=== PATIENT | female | born 1940 | race Caucasian/White ===

== ENCOUNTER 2019-08-20 15:49 | Inpatient (IN) | payer MEDICARE ==
--- NOTE | 2019-08-20 16:55 | XR ---
EXAMINATION TYPE: XR chest 2V DATE OF EXAM: 08/20/2019 COMPARISON: 01/28/2012 TECHNIQUE: PA and lateral views submitted. HISTORY: Chest pain FINDINGS: Heart is globally enlarged. Large hiatal hernia. Postsurgical change right shoulder and diffuse osteo penia. No pneumothorax or overt failure. No consolidation. Mild degenerative change of the spine. IMPRESSION: 1. Global cardiomegaly correlate for cardiomyopathy versus pericardial effusion. 2. Large hiatal hernia.
[2019-08-20 16:56] LABS: Basophils # (A) 0.1 k/uL (0-0.2); Basophils % (A) 1 %; Eosinophils # (A) 0.7 k/uL (0-0.7); Eosinophils % (A) 7 %; HCT 39.9 % (34.0-46.0); HGB 12.5 gm/dL (11.4-16.0); Lymphocytes # (A) 2.3 k/uL (1.0-4.8); Lymphocytes % (A) 22 %; MCH 30.9 pg (25.0-35.0); MCHC 31.4 g/dL (31.0-37.0); MCV 98.5 fL (80.0-100.0); Mean Platelet Volume 9.3; Monocytes # (A) 0.7 k/uL (0-1.0); Monocytes % (A) 7 %; Neutrophils # (A) 6.4 k/uL (1.3-7.7); Neutrophils % (A) 62 %; Platelet Count 254 k/uL (150-450); RBC 4.05 m/uL (3.80-5.40); RDW 13.3 % (11.5-15.5); WBC 10.4 k/uL (3.8-10.6)
--- NOTE | 2019-08-20 16:59 | ED ---
General Adult HPI - General Chief complaint: Recheck/Abnormal Lab/Rx Stated complaint: fluid around heart/per dr Betancourt Time Seen by Provider: 08/20/19 15:50 Source: patient, RN notes reviewed, old records reviewed Mode of arrival: ambulatory Limitations: no limitations - History of Present Illness Initial comments: This is an 78-year-old female who presents emergency Department complaining that she's been a little short of breath lately and she went to see her primary medical care doctor primary medical care doctor stated that she had a pericardial effusion. Patient was sent to the emergency department immediately. Patient denies any chest pain. Patient denies any fever chills. Patient denies any edema to the leg. - Related Data Home Medications Medication Instructions Recorded Confirmed Levothyroxine Sodium [Synthroid] 62.5 mg PO DAILY@0600 08/20/19 08/20/19 Multivitamins, Thera [Multivitamin 1 tab PO W/LUNCH 08/20/19 08/20/19 (formulary)] Vitamin D3 (Unknown Strength) 1 tab PO W/LUNCH 08/20/19 08/20/19 amLODIPine [Norvasc] 5 mg PO DAILY@0700 08/20/19 08/20/19 Allergies Allergy/AdvReac Type Severity Reaction Status Date / Time No Known Allergies Allergy Verified 08/20/19 17:02 Review of Systems ROS Statement: Those systems with pertinent positive or pertinent negative responses have been documented in the HPI. ROS Other: All systems not noted in ROS Statement are negative. Past Medical History Past Medical History: Hypertension, Thyroid Disorder History of Any Multi-Drug Resistant Organisms: None Reported Past Surgical History: Unable to Obtain Past Psychological History: No Psychological Hx Reported Smoking Status: Former smoker Past Alcohol Use History: None Reported Past Drug Use History: None Reported General Exam - General Exam Comments Initial Comments: GENERAL: Patient is well-developed and well-nourished. Patient is nontoxic and well- hydrated and is in no acute distress. ENT: Neck is soft and supple. No significant lymphadenopathy is noted. Oropharynx is clear. Moist mucous membranes. Neck has full range of motion without eliciting any pain. EYES: The sclera were anicteric and conjunctiva were pink and moist. Extraocular movements were intact and pupils were equal round and reactive to light. Eyelids were unremarkable. PULMONARY: Unlabored respirations. Good breath sounds bilaterally. No audible rales rhonchi or wheezing was noted. CARDIOVASCULAR: There is a regular rate and rhythm without any murmurs gallops or rubs. ABDOMEN: Soft and nontender with normal bowel sounds. No palpable organomegaly was noted. There is no palpable pulsatile mass. SKIN: Skin is clear with no lesions or rashes and otherwise unremarkable. NEUROLOGIC: Patient is alert and oriented x3. Cranial nerves II through XII are grossly intact. Motor and sensory are also intact. Normal speech, volume and content. Symmetrical smile. MUSCULOSKELETAL: Normal extremities with adequate strength and full range of motion. No lower extremity swelling or edema. No calf tenderness. LYMPHATICS: No significant lymphadenopathy is noted PSYCHIATRIC: Normal psychiatric evaluation. Limitations: no limitations Course Vital Signs 08/20/19 08/20/19 15:53 17:38 Temperature 97.8 F Pulse Rate 97 86 Respiratory 18 16 Rate Blood Pressure 201/84 173/83 O2 Sat by Pulse 98 97 Oximetry Medical Decision Making - Medical Decision Making EKG shows sinus rhythm with occasional PVC at 89 bpm [place] interval 232 QRS is 88 QT interval 360 QTC is 438. Patient's EKG shows no ST segment elevation or depression. Chest x-ray shows global cardiomegaly consistent with pericardial effusion I spoke with Dr. Betancourt he wanted me to admit the patient admitted the patient I wrote admitting orders I consult cardiology as well as cardiothoracic surgery. - Lab Data Result diagrams: 08/20/19 16:28 08/20/19 16:28 Lab Results 08/20/19 08/20/19 08/20/19 Range/Units 16:28 16:28 16:28 WBC 10.4 (3.8-10.6) k/uL RBC 4.05 (3.80-5.40) m/uL Hgb 12.5 (11.4-16.0) gm/dL Hct 39.9 (34.0-46.0) % MCV 98.5 (80.0-100.0) fL MCH 30.9 (25.0-35.0) pg MCHC 31.4 (31.0-37.0) g/dL RDW 13.3 (11.5-15.5) % Plt Count 254 (150-450) k/uL Neutrophils % 62 % Lymphocytes % 22 % Monocytes % 7 % Eosinophils % 7 % Basophils % 1 % Neutrophils # 6.4 (1.3-7.7) k/uL Lymphocytes # 2.3 (1.0-4.8) k/uL Monocytes # 0.7 (0-1.0) k/uL Eosinophils # 0.7 (0-0.7) k/uL Basophils # 0.1 (0-0.2) k/uL PT 10.2 (9.0-12.0) sec INR 1.0 (<1.2) APTT 23.8 (22.0-30.0) sec Sodium 139 (137-145) mmol/L Potassium 3.9 (3.5-5.1) mmol/L Chloride 105 (98-107) mmol/L Carbon Dioxide 27 (22-30) mmol/L Anion Gap 7 mmol/L BUN 24 H (7-17) mg/dL Creatinine 1.30 H (0.52-1.04) mg/dL Est GFR (CKD-EPI)AfAm 45 (>60 ml/min/1.73 sqM) Est GFR (CKD-EPI)NonAf 39 (>60 ml/min/1.73 sqM) Glucose 107 H (74-99) mg/dL Calcium 10.4 H (8.4-10.2) mg/dL Magnesium 2.0 (1.6-2.3) mg/dL Total Bilirubin 0.2 (0.2-1.3) mg/dL AST 26 (14-36) U/L ALT 17 (4-34) U/L Alkaline Phosphatase 92 (38-126) U/L Troponin I (0.000-0.034) ng/mL Total Protein 6.3 (6.3-8.2) g/dL Albumin 3.5 (3.5-5.0) g/dL 08/20/19 Range/Units 16:28 WBC (3.8-10.6) k/uL RBC (3.80-5.40) m/uL Hgb (11.4-16.0) gm/dL Hct (34.0-46.0) % MCV (80.0-100.0) fL MCH (25.0-35.0) pg MCHC (31.0-37.0) g/dL RDW (11.5-15.5) % Plt Count (150-450) k/uL Neutrophils % % Lymphocytes % % Monocytes % % Eosinophils % % Basophils % % Neutrophils # (1.3-7.7) k/uL Lymphocytes # (1.0-4.8) k/uL Monocytes # (0-1.0) k/uL Eosinophils # (0-0.7) k/uL Basophils # (0-0.2) k/uL PT (9.0-12.0) sec INR (<1.2) APTT (22.0-30.0) sec Sodium (137-145) mmol/L Potassium (3.5-5.1) mmol/L Chloride (98-107) mmol/L Carbon Dioxide (22-30) mmol/L Anion Gap mmol/L BUN (7-17) mg/dL Creatinine (0.52-1.04) mg/dL Est GFR (CKD-EPI)AfAm (>60 ml/min/1.73 sqM) Est GFR (CKD-EPI)NonAf (>60 ml/min/1.73 sqM) Glucose (74-99) mg/dL Calcium (8.4-10.2) mg/dL Magnesium (1.6-2.3) mg/dL Total Bilirubin (0.2-1.3) mg/dL AST (14-36) U/L ALT (4-34) U/L Alkaline Phosphatase (38-126) U/L Troponin I <0.012 (0.000-0.034) ng/mL Total Protein (6.3-8.2) g/dL Albumin (3.5-5.0) g/dL Disposition Clinical Impression: Pericardial effusion Disposition: ADMITTED IP TO THIS HOSP Referrals: Bennett Betancourt MD [Primary Care Provider] - 1-2 days Time of Disposition: 18:16
[2019-08-20 17:05] LABS: Partial Thromboplastin Time 23.8 sec (22.0-30.0); Prothrombin Time 10.2 sec (9.0-12.0)
[2019-08-20 17:07] LABS: Albumin 3.5 g/dL (3.5-5.0); Calcium 10.4 mg/dL (8.4-10.2); Potassium 3.9 mmol/L (3.5-5.1); Total Bilirubin 0.2 mg/dL (0.2-1.3); Total Protein 6.3 g/dL (6.3-8.2)
[2019-08-20] MEDS ORDERED: hydrALAZINE HCL 25 MG TAB PO PRN (19:39)
--- NOTE | 2019-08-20 23:09 | P.HPIM ---
History of Present Illness H&P Date: 08/20/19 Chief Complaint: Pericardial effusion, worsening shortness of breath, tiredness, hypertensio 78-year-old female who moved from [facility] this past year I started seen almost a year ago who is known to have history of hypertension hyperlipidemia hypothyroidism with lipoma and a growth in the right upper extremity. Patient was seen in the office 3 weeks ago for worsening shortness of breath have mild abnormal EKG and louder murmur ended up going for an e chocardiogram which showed large pericardial effusion. Patient had no temporal not so far was called by cardiology who is doing then to patient for the echo and advised to have patient hospitalized for possible cardiac window. Patient is symptomatic currently having significant shortness of breath PND orthopnea mild hypertension severe tiredness fatigue abnormal balancing gait with generalized weakness become a lot worse lately. Review of Systems CONSTITUTIONAL: Well-developed no acute respiratory distress. Positive EYES: No icterus sclerae, no conjunctivitis. EARS, NOSE, MOUTH, THROAT, and FACE: No sore throat, lymphadenopathy, carotid bruits or deformity. RESPIRATORY: Shortness of breath with minimum exertion. CARDIOVASCULAR: Positive PND orthopnea palpitation with mild chest pain and shortness of breath. GASTROINTESTINAL: No Abd pain, Nausea or vomiting, no Diarrhea or constipation, No GI Bleed, no distention or masses. GENITOURINARY: Negative for Hematuria or UTI, no kidney stones. INTEGUMENT/BREAST: Large lipoma on the growth on the right upper extremity. HEMATOLOGIC/LYMPHATIC: Negative for bleed or purpura. MUSCULOSKELTAL: Negative for Myalgia or arthralgia. NEURLOGICAL: No LOC, Sz or syncope, blurred vision dizziness or abnormality.. Positive normal balance and gait with slight decrease in memory. BEHAVIORAL/PSYCH: Negative. ENDOCRINE: Negative. Social history: Patient quit smoking years ago smoked for about 10 years only no eye code abuse no drug use she is single and lives alone. Family history: Her father dying at age 95 from old age, mother dying her AV from recurrent infarction, patient had 1 sister who passed recently from complication of hip fracture. 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 History of Any Multi-Drug Resistant Organisms: None Reported Past Surgical History: Unable to Obtain Additional Past Surgical History / Comment(s): right ear surgery for Menieres disease 1985 Past Anesthesia/Blood Transfusion Reactions: No Reported Reaction Past Psychological History: No Psychological Hx Reported Smoking Status: Former smoker Past Alcohol Use History: None Reported Past Drug Use History: None Reported - Past Family History Mother Family Medical History: Myocardial Infarction ([place]) Father Family Medical History: Cancer Medications and Allergies Home Medications Medication Instructions Recorded Confirmed Type Levothyroxine Sodium [Synthroid] 62.5 mg PO DAILY@0600 08/20/19 08/20/19 History Multivitamins, Thera [Multivitamin 1 tab PO W/LUNCH 08/20/19 08/20/19 History (formulary)] Vitamin D3 (Unknown Strength) 1 tab PO W/LUNCH 08/20/19 08/20/19 History amLODIPine [Norvasc] 5 mg PO DAILY@0708/20/19 08/20/19 History Allergies Allergy/AdvReac Type Severity Reaction Status Date / Time No Known Allergies Allergy Verified 08/20/19 17:02 Physical Exam Vitals: Vital Signs Temp Pulse Pulse Resp BP BP Pulse Ox 08/20/19 19:07 97.8 F 88 18 197/86 98 08/20/19 17:38 86 16 173/83 97 08/20/19 15:53 97.8 F 97 18 201/84 98 Intake and Output 08/20/19 08/20/19 08/20/19 06:59 14:59 22:59 Other: Weight 53.977 kg General Appearance: Alert, cooperative, no distress, appears stated age. Neck HEENT: Supple, no lymphadenopathy, no thyroid enlargement, no carotid bruits. Lungs: Decreased breath some bilateral rhonchi no crackles. Chest Wall: Decrease expansion with deep inspiration no tenderness and no deformity was found on exam, no costochondral pain or discomfort. Heart: Regular rhythm and rate S1-S2 positive mild tachycardia positive S3 2/6 ejection systolic murmur Back: Symmetric, no curvature, ROM normal, no CVA tenderness. Abdomen: Soft, non-tender, bowel sounds active all four quadrants, no masses, no organomegaly. Extremities: Trace edema decreased pulse bilaterally started lipoma on the right upper extremity with mild bruises from recent injury. Pulses: 2+ and symmetric. Skin: Skin color, texture, tugor normal, no rashes or lesions. Neurologic: Alert oriented x3 cranial nerves II through XII intact, positive generalized weakness was generalized abnormal balance and gait. Slight memory loss. Results CBC & Chem 7: 08/20/19 16:28 08/20/19 16:28 Labs: Abnormal Lab Results - Last 24 Hours (Table) 08/20/19 Range/Units 16:28 BUN 24 H (7-17) mg/dL Creatinine 1.30 H (0.52-1.04) mg/dL Glucose 107 H (74-99) mg/dL Calcium 10.4 H (8.4-10.2) mg/dL Thrombosis Risk Factor Assmnt - DVT/VTE Prophylaxis DVT/VTE Prophylaxis: Pharmacologic Prophylaxis ordered, Mechanical Prophylaxis ordered Assessment and Plan Assessment: 1 large pericardial effusion: Not acutely etiology at this point, patient will be hospitalized, repeat echocardiogram will consult cardiology IV diuretics will be getting patient will see cardiothoracic surgery for possible pericardial window. In the meanwhile watch patient hemodynamic status for any sign of tamponade. 2 significant shortness of breath and dyspnea: Most likely from pericardial eff usion and mild heart failure. 3 hypertension: Continue patient on amlodipine 5 mg a day blood pressure has been elevated we'll add hydralazine 25 mg every 6 hours for systolic above 160. 4 hypothyroidism: Continue patient on levothyroxine total of 66 g daily. 5 severe GERD: Patient be on Pepcid 20 mg daily. 6 acute kidney injury: Creatinine is up to 1.30 with bun 24 with GFR decreased to 39 continue to watch symptoms repeat BUN/creatinine 24 hours. 7 hypercalcemia: With calcium of 10.4 will repeat parathyroid hormone level and keep watching for any sign of malignancy causing hypercalcemia in the pericardial effusion. 8 large happen hernia: Patient can benefit from PPI watch for any sign of bleed. 9 mild arrhythmia: Patient is having PVCs can benefit from small dose of beta mamta. 10 possible coronary artery disease: Patient described no previous history of [place] that she had Q waves on the inferior area with possible area further testing including stress test or heart cath can be beneficial. 11 hyperglycemia: Has been on diet control A1c was mildly elevated patient to continue current management. 12 severe spinal stenosis mostly lumbar on chronic in origin on conservative management and physical therapy. 13 DVT prophylaxis: Continue patient on heparin subcutaneous. 14 GI prophylaxis: Continue patient on pantoprazole. CODE STATUS: Full code. Admit patient to inpatient service for more than 2 night stay.
[2019-08-21] MEDS ORDERED: amLODIPine 5 MG TAB PO STA (00:24)
[2019-08-21] MEDS: amLODIPine 5 MG TAB PO SCH (06:08)
[2019-08-21] MEDS: LEVOTHYROXINE 125 MCG TAB PO SCH (06:08)
[2019-08-21] MEDS: PANTOPRAZOLE 40 MG TABLET PO SCH (06:09)
--- NOTE | 2019-08-21 07:54 | P.CRDCN ---
History of Present Illness Consult date: 08/21/19 Reason for Consult (text): Pleural effusion History of present illness: History of present illness: This is an 78-year-old female patient not previously established with cardiology with past medical history of hypertension, Mnire's, hypothyroidism. She moved from the [facility] to [place] one year ago and follows with Dr. Betancourt. 3 weeks ago she developed increasing shortness of breath and was noted to have increased murmur when she was seen by Dr. Betancourt. Patient underwent echocardiogram that reported as large pericardial effusion and patient was contacted by Dr. Betancourt to come into the hospital for further evaluation and treatment. She denies any recent medication changes. Patient's breathing status is currently stable and heart rate is controlled. Patient also complains of some shortness of breath with activity and generalized weakness. She states she has lost approximate 5 pounds over the past week or so and has had significant weight loss over the past year since she moved to [place]. This is unintentional weight loss despite good appetite. The patient also relates that she recently had a carotid ultrasound done in the office with Dr. Betancourt and does not know results. Patient was a smoker briefly and quit when she was 28 years old. No alcohol use. Initial blood work was unremarkable except for BUN of 24 and creatinine 1.3. Troponin negative. EKG is sinus rhythm with occasional PVCs. Chest x-ray revealed global cardiomegaly with possible cardiomyopathy or pericardial effusion. Large hiatal hernia. Review Of Systems: Constitutional: No fever, no chills. Reports generalized weakness, reports fatigue. EENT: No headache. No blurred vision or double vision, no loss of vision. No loss of Hearing, no dizziness. No nasal drainage or congestion. No epistaxis. No sore throat. Lungs: No shortness of breath, cough, no sputum production. No wheezing. Cardiovascular: No chest pain, no lower extremity edema. No palpitations. Reports paroxysmal nocturnal dyspnea. Reports orthopnea. No lightheadedness or dizziness. No syncopal episodes. Abdominal: No abdominal pain. No nausea, vomiting. No diarrhea. No constipation. No bloody or tarry stools. No loss of appetite. Genitourinary: No dysuria, increased frequency, urgency. No urinary retention. Musculoskeletal: No myalgias. No muscle weakness, no gait dysfunction, no frequent falls. No back pain. No neck pain. Integumentary: No wounds, no lesions. No rash or pruritus. No unusual bruising. Neurologic: No aphasia. No facial droop. No change in mentation. No head injury. No headache. No paralysis. No paresthesia. Psychiatric: No depression. No anxiety. No mood swings. Endocrine: No abnormal blood sugars. No weight change. No excessive sweating or thirst. No weight change. Physical examination: Gen: This is an 86-year-old female. She is resting in bed any breakfast and appears to be in no acute distress. VS: Patient has been afebrile, heart rate 74, blood pressure 162/73, pulse ox 97% on room air. HEENT: Head is atraumatic, normocephalic. Pupils equal, round. Sclerae is anicteric. NECK: Supple. No JVD. No lymphadenopathy. No thyromegaly. LUNGS: Few crackles to the left base otherwise clear. No wheezes. No intercostal retractions. HEART: Regular rate and rhythm. 2/6 systolic murmur. ABDOMEN: Soft. Bowel sounds are present. No masses. No tenderness. EXTREMITIES: No pedal edema. No calf tenderness. NEUROLOGICAL: Patient is awake, alert and oriented x3. Cranial nerves 2 through 12 are grossly intact. Assessment: Pericardial effusion Hypertension Hypothyroidism Mnire's Plan: Consult with cardiothoracic surgery Continue amlodipine 5 mg daily Obtain 2-D echocardiogram and Doppler study to assess cardiac structure and function, evaluate pericardial effusion Obtain TSH and free T4 Further recommendations to follow based upon clinical course Thank you kindly for this consultation Nurse practitioner note has been reviewed, I agree with documented findings and plan of care. Patient was seen and examined. 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 History of Any Multi-Drug Resistant Organisms: None Reported Past Surgical History: Unable to Obtain Additional Past Surgical History / Comment(s): right ear surgery for Menieres disease 1984 Past Anesthesia/Blood Transfusion Reactions: No Reported Reaction Past Psychological History: No Psychological Hx Reported Smoking Status: Former smoker Past Alcohol Use History: None Reported Past Drug Use History: None Reported - Past Family History Mother Family Medical History: Myocardial Infarction ([place]) Father Family Medical History: Cancer Medications and Allergies Home Medications Medication Instructions Recorded Confirmed Type Levothyroxine Sodium [Synthroid] 62.5 mg PO DAILY@0608/20/19 08/20/19 History Multivitamins, Thera [Multivitamin 1 tab PO W/LUNCH 08/20/19 08/20/19 History (formulary)] Vitamin D3 (Unknown Strength) 1 tab PO W/LUNCH 08/20/19 08/20/19 History amLODIPine [Norvasc] 5 mg PO DAILY@69908/20/19 08/20/19 History Allergies Allergy/AdvReac Type Severity Reaction Status Date / Time No Known Allergies Allergy Verified 08/20/19 17:02 Physical Exam Vitals: Vital Signs Temp Pulse Pulse Resp BP BP Pulse Ox 08/21/19 06:06 162/73 08/21/19 03:35 97.4 F L 74 18 161/78 97 08/21/19 02:54 163/74 08/20/19 23:50 97.6 F 66 18 183/78 97 08/20/19 19:30 97.8 F 83 18 171/81 97 08/20/19 19:07 97.8 F 88 18 197/86 98 08/20/19 17:38 86 16 173/83 97 08/20/19 15:53 97.8 F 97 18 201/84 98 Intake and Output 08/20/19 08/21/19 08/21/19 22:59 06:59 14:59 Output Total 500 Balance -500 Output: Urine 500 Other: Voiding Method Toilet Toilet # Voids 1 Weight 53.977 kg 52.5 kg Results 08/20/19 16:28 08/21/19 08:51 Cardiac Enzymes 08/20/19 08/20/19 Range/Units 16:28 16:28 AST 26 (14-36) U/L Troponin I <0.012 (0.000-0.034) ng/mL Coagulation 08/20/19 Range/Units 16:28 PT 10.2 (9.0-12.0) sec APTT 23.8 (22.0-30.0) sec CBC 08/20/19 Range/Units 16:28 WBC 10.4 (3.8-10.6) k/uL RBC 4.05 (3.80-5.40) m/uL Hgb 12.5 (11.4-16.0) gm/dL Hct 39.9 (34.0-46.0) % Plt Count 254 (150-450) k/uL Comprehensive Metabolic Panel 08/20/19 Range/Units 16:28 Sodium 139 (137-145) mmol/L Potassium 3.9 (3.5-5.1) mmol/L Chloride 105 (98-107) mmol/L Carbon Dioxide 27 (22-30) mmol/L BUN 24 H (7-17) mg/dL Creatinine 1.30 H (0.52-1.04) mg/dL Glucose 107 H (74-99) mg/dL Calcium 10.4 H (8.4-10.2) mg/dL AST 26 (14-36) U/L ALT 17 (4-34) U/L Alkaline Phosphatase 92 (38-126) U/L Total Protein 6.3 (6.3-8.2) g/dL Albumin 3.5 (3.5-5.0) g/dL Current Medications Generic Name Dose Route Start Last Admin Trade Name Leonq PRN Reason Stop Dose Admin Amlodipine Besylate 5 mg 08/21/19 07:00 08/21/19 06:08 Norvasc PO 5 mg DAILY@0700 [facility] Administration Cholecalciferol 1,000 unit 08/21/19 12:30 Vitamin D3 (25 Mcg = 1000 Iu) PO W/LUNCH [facility] Heparin Sodium (Porcine) 5,000 unit 08/21/19 09:00 Heparin SQ Q12HR [facility] Hydralazine HCl 25 mg 08/20/19 19:39 08/20/19 19:55 Apresoline PO 25 mg Q6H PRN Administration Blood Pressure - High Levothyroxine Sodium 62.5 mcg 08/21/19 06:00 08/21/19 06:08 Synthroid PO 62.5 mcg DAILY@0600 [facility] Administration Multivitamins 1 each 08/21/19 12:30 Theragran PO W/LUNCH [facility] Pantoprazole Sodium 40 mg 08/21/19 07:30 08/21/19 06:09 Protonix PO 40 mg [id number] [facility] Administration Intake and Output 08/20/19 08/21/19 08/21/19 22:59 06:59 14:59 Output Total 500 Balance -500 Output: Urine 500 Other: Voiding Method Toilet Toilet # Voids 1 Weight 53.977 kg 52.5 kg 08/20/19 16:28 08/20/19 16:28
[2019-08-21] MEDS: HEPARIN SODIUM,PORCINE 5,000 UNIT/ML 1 ML VIAL SQ SCH ×2 (08:14→20:10)
[2019-08-21 09:23] LABS: Albumin 3.3 g/dL (3.5-5.0); Calcium 9.9 mg/dL (8.4-10.2); Potassium 4.2 mmol/L (3.5-5.1); Total Bilirubin 0.4 mg/dL (0.2-1.3); Total Protein 5.9 g/dL (6.3-8.2)
--- NOTE | 2019-08-21 09:27 | P.PN ---
Subjective Progress Note Date: 08/21/19 78-year-old female who moved from [facility] this past year I started seen almost a year ago who is known to have history of hypertension hyperlipidemia hypothyroidism with lipoma and a growth in the right upper extremity. Patient was seen in the office 3 weeks ago for worsening shortness of breath have mild abnormal EKG and louder murmur ended up going for an echocardiogram which showed large pericardial effusion. Patient had no temporal not so far was called by cardiology who is doing then to patient for the echo and advised to have patient hospitalized for possible cardiac window. Patient is symptomatic currently having significant shortness of breath PND orthopnea mild hypertension severe tiredness fatigue abnormal balancing gait with generalized weakness become a lot worse lately. 08/21/2019: Patient is resting comfortably in bed without any complaints or concerns. Possible pericardial window ordered for tomorrow. Echo ordered for today. Due to the patient's hypercalcemia CT of the chest abdomen and pelvis ordered today. Patient has no new complaints or concerns. Patient has been afebrile, blood pressure 154/70, heart rate 81, respirations 16, pulse ox 97% on room air. Potassium 4.2, BUN 19, creatinine 1.19, calcium 9.9 this morning, TSH 5.850 Review of systems CONSTITUTIONAL: Well-developed no acute respiratory distress. Positive EYES: No icterus sclerae, no conjunctivitis. EARS, NOSE, MOUTH, THROAT, and FACE: No sore throat, lymphadenopathy, carotid bruits or deformity. RESPIRATORY: Shortness of breath with minimum exertion. CARDIOVASCULAR: Positive PND orthopnea palpitation with mild chest pain and shortness of breath. GASTROINTESTINAL: No Abd pain, Nausea or vomiting, no Diarrhea or constipation, No GI Bleed, no distention or masses. GENITOURINARY: Negative for Hematuria or UTI, no kidney stones. INTEGUMENT/BREAST: Large lipoma on the growth on the right upper extremity. HEMATOLOGIC/LYMPHATIC: Negative for bleed or purpura. MUSCULOSKELTAL: Negative for Myalgia or arthralgia. NEURLOGICAL: No LOC, Sz or syncope, blurred vision dizziness or abnormality.. Positive normal balance and gait with slight decrease in memory. BEHAVIORAL/PSYCH: Negative. ENDOCRINE: Negative. Objective - Vital Signs Vital signs: Vital Signs Temp 97.7 F 08/21/19 08:00 Pulse 81 08/21/19 08:00 Resp 16 08/21/19 08:00 BP 154/70 08/21/19 08:00 Pulse Ox 97 08/21/19 08:00 Intake & Output 08/20/19 08/21/19 08/21/19 18:59 06:59 18:59 Output Total 500 Balance -500 Weight 53.977 kg 52.5 kg Output: Urine 500 Other: Voiding Method Toilet Toilet # Voids 1 - Exam General Appearance: Alert, cooperative, no distress, 78-year-old appears stated age. Neck HEENT: Supple, no lymphadenopathy, no thyroid enlargement, no carotid bruits. Lungs: Decreased breath some bilateral rhonchi no crackles. Chest Wall: Decrease expansion with deep inspiration no tenderness and no deformity was found on exam, no costochondral pain or discomfort. Heart: Regular rhythm and rate S1-S2 positive mild tachycardia positive S3 2/6 ejection systolic murmur Back: Symmetric, no curvature, ROM normal, no CVA tenderness. Abdomen: Soft, non-tender, bowel sounds active all four quadrants, no masses, no organomegaly. Extremities: Trace edema decreased pulse bilaterally started lipoma on the right upper extremity with mild bruises from recent injury. Pulses: 2+ and symmetric. Skin: Skin color, texture, tugor normal, no rashes or lesions. Neurologic: Alert oriented x3 cranial nerves II through XII intact, positive generalized weakness was generalized abnormal balance and gait. Slight memory loss. - Labs CBC & Chem 7: 08/20/19 16:28 08/20/19 16:28 Labs: Abnormal Lab Results - Last 24 Hours (Table) 08/20/19 08/20/19 Range/Units 16:28 16:28 BUN 24 H (7-17) mg/dL Creatinine 1.30 H (0.52-1.04) mg/dL Glucose 107 H (74-99) mg/dL Calcium 10.4 H (8.4-10.2) mg/dL TSH 5.850 H (0.465-4.680) mIU/L Assessment and Plan Plan: 1 large pericardial effusion: Not acutely etiology at this point, patient will be hospitalized, repeat echocardiogram will consult cardiology IV diuretics will be getting patient will see cardiothoracic surgery for possible pericardial window tomorrow. In the meanwhile watch patient hemodynamic status for any sign of tamponade. 2 significant shortness of breath and dyspnea: Most likely from pericardial effusion and mild heart failure. 3 hypertension: Continue patient on amlodipine 5 mg a day blood pressure has been elevated we'll add hydralazine 25 mg every 6 hours for systolic above 160. 4 hypothyroidism: Continue patient on levothyroxine total of 66 g daily. TSH 5.580 5 severe GERD: Patient be on Pepcid 20 mg daily. 6 acute kidney injury: Creatinine 1.19, continue to monitor BUN/creatinine 7 hypercalcemia: Parathyroid level ordered. CT with and without contrast of chest pelvis and abdomen ordered 8 large happen hernia: Patient can benefit from PPI watch for any sign of bleed. 9 mild arrhythmia: Patient is having PVCs can benefit from small dose of beta mamta. 10 possible coronary artery disease: Patient described no previous history of ID that she had Q waves on the inferior area with possible area further testing including stress test or heart cath can be beneficial. 11 hyperglycemia: Has been on diet control A1c was mildly elevated patient to continue current management. 12 severe spinal stenosis mostly lumbar on chronic in origin on conservative management and physical therapy. 13 DVT prophylaxis: Continue patient on heparin subcutaneous. 14 GI prophylaxis: Continue patient on pantoprazole. 15. Covid 19 not detected CODE STATUS: Full code. Admit patient to inpatient service for more than 2 night stay. Impression and plan of care have been directed as dictated by the signing physician. Ave Morris nurse practitioner acting as scribe for signing physician.
[2019-08-21 09:33] LABS: T4, Free (Free Thyroxine) 0.99 ng/dL (0.78-2.19)
[2019-08-21] MEDS: SODIUM CHLORIDE 0.9% 1,000 ML IV SCH ×2 (09:33→23:16)
[2019-08-21] MEDS: IOPAMIDOL CONTRAST (ORAL USE) VIAL PO PRN ×2 (10:57→11:47)
--- NOTE | 2019-08-21 12:11 | P.GSCN ---
History of Present Illness Consult date: 08/21/19 Reason for Consult: Large pericardial effusion Requesting physician: Bennett Betancourt History of present illness: This is an 78-year-old female who follows in an outpatient basis with Dr. Betancourt. She has a previous medical history of hypertension, hypothyroid, Mnire's disease, frequent falls, previous tobacco dependence, family history of myocardial infarction and cancer, and unintentional 40 pound weight loss in the previous 6 months. Apparently she moved to [place] from [place] approximately 1 year ago and has been following with Dr. Betancourt. For the previous 3 weeks she has noticed increased shortness of breath with exertion and generally feeling more tired. She denies any chest pain, nausea, dizziness, or syncopal episodes. She was noted to have a murmur. An echocardiogram was completed at Dr. Betancourt's office and read as demonstrating a large pericardial effusion. She was recommended to report to the emergency room for further evaluation and treatment. Lab work was unremarkable except BUN 24, creatinine 1.3, calcium 10.4. Chest x-ray was completed demonstrating global cardiomegaly. EKG demonstrated normal sinus rhythm with frequent PVCs. She was admitted for further evaluation and treatment with consultation placed to cardiology and cardiothoracic surgery. Review of Systems Review of systems was completed and was negative except as noted - Constitutional Reports fatigue, Reports weight loss - Cardiovascular Reports dyspnea on exertion 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; frequent falls History of Any Multi-Drug Resistant Organisms: None Reported Past Surgical History: Orthopedic Surgery, Tonsillectomy, Tubal Ligation Additional Past Surgical History / Comment(s): right ear surgery for Menieres disease 1984; right shoulder surgery Past Anesthesia/Blood Transfusion Reactions: No Reported Reaction Past Psychological History: No Psychological Hx Reported Additional Psychological History / Comment(s): Patient's sister (who was her roommate) in June 2019 Smoking Status: Former smoker Past Alcohol Use History: None Reported Past Drug Use History: None Reported - Past Family History Mother Family Medical History: Myocardial Infarction ([place]) Father Family Medical History: Cancer Medications and Allergies Home Medications Medication Instructions Recorded Confirmed Type Levothyroxine Sodium [Synthroid] 62.5 mg PO DAILY@0600 08/20/19 08/20/19 History Multivitamins, Thera [Multivitamin 1 tab PO W/LUNCH 08/20/19 08/20/19 History (formulary)] Vitamin D3 (Unknown Strength) 1 tab PO W/LUNCH 08/20/19 08/20/19 History amLODIPine [Norvasc] 5 mg PO DAILY@0700 08/20/19 08/20/19 History Allergies Allergy/AdvReac Type Severity Reaction Status Date / Time No Known Allergies Allergy Verified 08/20/19 17:02 Surgical - Exam Vital Signs Temp Pulse Resp BP Pulse Ox 97.8 F 97 18 201/84 98 08/20/19 15:53 08/20/19 15:53 08/20/19 15:53 08/20/19 15:53 08/20/19 15:53 - General well developed, well nourished, no distress, no pain - Eyes normal ocular movement - ENT decreased hearing, poor mcfp - Neck no masses, no bruits, trachea midline - Respiratory Lungs sounds diminished bilaterally. Respirations even, nonlabored. Currently on room air with oxygen saturation 97%. No chest wall deformities. No clubbing or cyanosis present. - Cardiovascular S1, S2 present, systolic murmur present, no distant heart sounds. Regular rate and rhythm, sinus rhythm on telemetry. Palpable peripheral pulses bilaterally. No edema present. No calf pain or tenderness noted. - Abdomen Abdomen: soft, non tender, bowel sounds - Genitourinary Deferred - Rectum Deferred - Integumentary no rash, no growths - Neurologic normal coordination, normal sensation - Musculoskeletal normal gait, normal posture - Psychiatric oriented to time, oriented to person, oriented to place, speech is normal, memory intact Results - Labs 08/20/19 16:28 08/21/19 08:51 Abnormal Lab Results - Last 24 Hours (Table) 08/20/19 08/20/19 08/21/19 Range/Units 16:28 16:28 08:51 BUN 24 H 19 H (7-17) mg/dL Creatinine 1.30 H 1.19 H (0.52-1.04) mg/dL Glucose 107 H 147 H (74-99) mg/dL Calcium 10.4 H (8.4-10.2) mg/dL Total Protein 5.9 L (6.3-8.2) g/dL Albumin 3.3 L (3.5-5.0) g/dL TSH 5.850 H (0.465-4.680) mIU/L Diabetes panel 08/20/19 08/21/19 Range/Units 16:28 08:51 Sodium 139 140 (137-145) mmol/L Potassium 3.9 4.2 (3.5-5.1) mmol/L Chloride 105 107 (98-107) mmol/L Carbon Dioxide 27 27 (22-30) mmol/L BUN 24 H 19 H (7-17) mg/dL Creatinine 1.30 H 1.19 H (0.52-1.04) mg/dL Glucose 107 H 147 H (74-99) mg/dL Calcium 10.4 H 9.9 (8.4-10.2) mg/dL AST 26 23 (14-36) U/L ALT 17 15 (4-34) U/L Alkaline Phosphatase 92 78 (38-126) U/L Total Protein 6.3 5.9 L (6.3-8.2) g/dL Albumin 3.5 3.3 L (3.5-5.0) g/dL Thyroid panel 08/20/19 Range/Units 16:28 TSH 5.850 H (0.465-4.680) mIU/L Calcium panel 08/20/19 08/21/19 Range/Units 16:28 08:51 Calcium 10.4 H 9.9 (8.4-10.2) mg/dL Albumin 3.5 3.3 L (3.5-5.0) g/dL Pituitary panel 08/20/19 08/20/19 08/21/19 Range/Units 16:28 16:28 08:51 Sodium 139 140 (137-145) mmol/L Potassium 3.9 4.2 (3.5-5.1) mmol/L Chloride 105 107 (98-107) mmol/L Carbon Dioxide 27 27 (22-30) mmol/L BUN 24 H 19 H (7-17) mg/dL Creatinine 1.30 H 1.19 H (0.52-1.04) mg/dL Glucose 107 H 147 H (74-99) mg/dL Calcium 10.4 H 9.9 (8.4-10.2) mg/dL TSH 5.850 H (0.465-4.680) mIU/L Adrenal panel 08/20/19 08/21/19 Range/Units 16:28 08:51 Sodium 139 140 (137-145) mmol/L Potassium 3.9 4.2 (3.5-5.1) mmol/L Chloride 105 107 (98-107) mmol/L Carbon Dioxide 27 27 (22-30) mmol/L BUN 24 H 19 H (7-17) mg/dL Creatinine 1.30 H 1.19 H (0.52-1.04) mg/dL Glucose 107 H 147 H (74-99) mg/dL Calcium 10.4 H 9.9 (8.4-10.2) mg/dL Total Bilirubin 0.2 0.4 (0.2-1.3) mg/dL AST 26 23 (14-36) U/L ALT 17 15 (4-34) U/L Alkaline Phosphatase 92 78 (38-126) U/L Total Protein 6.3 5.9 L (6.3-8.2) g/dL Albumin 3.5 3.3 L (3.5-5.0) g/dL - Imaging Chest x-ray: report reviewed, image reviewed EKG: image reviewed Additional studies: Echocardiogram reviewed at the bedside with Dr. Mei Assessment and Plan Assessment: 1. Large pericardial effusion 2. Acute kidney injury 3. Hypercalcemia 4. Hypertension 5. Hypothyroid 6. Mnire's disease 7. Frequent falls 8. Previous tobacco dependence 9. Family history of myocardial infarction and cancer 10. Unintentional 40 pound weight loss in the last 6 months Plan: The patient was seen and examined at the bedside with Dr. Mei. Her echocardiogram was being completed at that time and did demonstrate large pericardial effusion. Our recommendations are for pericardial window to be completed tomorrow 08/22/2019 in the operating room by Dr. Mei. The usual perioperative course was discussed with the patient, risks and benefits were reviewed, all questions were answered, and the patient consented to surgery. She will be NPO after midnight. Type and screen was drawn. Incentive spirometer will be ordered and encouraged. Continue to monitor for tachycardia and/or hypotension. Medical management of other comorbidities per primary care, cardiology. More recommendations to follow. Thank you Dr. Betancourt for this consult. We look forward to working with you in the care of your patient. Time with Patient: Greater than 30
--- NOTE | 2019-08-21 12:39 | CT ---
EXAMINATION TYPE: CT ChestAbdPelvis wo/w con DATE OF EXAM: 08/21/2019 COMPARISON: HISTORY: malignancy, hypercalcemia CT DLP: 1366.6 mGycm CONTRAST: CT scan of the chest, abdomen and pelvis is performed with Oral Contrast and without and with IV Cont rast, patient injected with 80 mL of Isovue 300. CT Chest: LUNGS: The lungs are clear and free of infiltrate or atelectasis. No pulmonary nodule or mass is det ected. No pleural effusion or CT evidence of interstitial lung disease. MEDIASTINUM: Moderate to large pericardial effusion surrounding the heart with maximal thickness of 2 cm. Moderate to large fixed hiatal hernia. The heart is mildly enlarged. Atheromatous change thoraci c aorta. No evidence for mediastinal mass or adenopathy. HILAR STRUCTURES: No evidence for mass. No hilar adenopathy is appreciated. OTHER: No significant abnormality. CONTRAST CT ABDOMEN AND PELVIS FINDINGS: LIVER/GB: No calcified gallstones. Simple cyst posterior segment right hepatic lobe measuring 1 cm. Biliary tree is of normal caliber. PANCREAS: No inflammation. No distinct mass. SPLEEN: No splenic enlargement. No lesion seen. ADRENALS: No nodule. Thickening of the adrenal glands without nodule. KIDNEYS/BLADDER: Atrophic change left kidney. No hydronephrosis. No nephrolithiasis. No distinct r enal mass. BOWEL: Visualization of the appendix. Normal bowel caliber. No inflammation. Moderate rectosigmoid f ecal stasis. GENITAL ORGANS: Atrophic changes of the uterus. Left ovarian cystic lesion measuring 3.2 cm is nonspe cific. Ultrasound correlation advised. LYMPH NODES: No greater than 1cm abdominal or pelvic lymph nodes are appreciated. AORTA: No significant abnormality. OSSEOUS STRUCTURES: No significant abnormality is seen. OTHER: No significant additional abnormality is seen. IMPRESSION: 1. Nonspecific cystic lesion left ovary. Ultrasound correlation advised. 2. Pericardial effusion as discussed above. 3 fixed hiatal hernia moderate size.
--- NOTE | 2019-08-21 13:45 | ECHOF ---
Referral Reason:lvfunction MEASUREMENTS -------- HEIGHT: 165.1 cm WEIGHT: 52.2 kg BP: 162/73 RVIDd: 3.5 cm (< 3.3) IVSd: 1.4 cm (0.6 - 1.1) LVIDd: 3.7 cm (3.9 - 5.3) LVPWd: 1.5 cm (0.6 - 1.1) IVSs: 2.0 cm LVIDs: 2.1 cm LVPWs: 2.0 cm LAESV Index (A-L): 26.95 ml/m Ao Diam: 2.9 cm (2.0 - 3.7) AV Cusp: 1.7 cm (1.5 - 2.6) MV EXCURSION: 16.963 mm (> 18.000) MV EF SLOPE: 140 mm/s (70 - 150) EPSS: 0.2 cm MV E Hunter: 0.98 m/s MV DecT: 177 ms MV A Hunter: 1.07 m/s MV E/A Ratio: 0.91 RAP: 5.00 mmHg RVSP: 22.95 mmHg FINDINGS -------- Sinus rhythm. This was a technically good study. The left ventricular size is normal. There is moderate concentric left ventricular hypertrophy. T here is normal global left ventricular contractility. Overall left ventricular systolic function is normal with, an EF between 55 - 60 %. The diastolic filling pattern is normal for the age of the p atient 16.92. The right ventricle is mildly enlarged. Normal LA size by volume 22+/-6 ml/m2. The right atrial size is normal. Interatrial and interventricular septum intact. The aortic valve is trileaflet and appears structurally normal. There is no evidence of aortic regu rgitation. There is no evidence of aortic stenosis. No mitral regurgitation. Mild tricuspid regurgitation present. There is no evidence of pulmonary hypertension. The right v entricular systolic pressure, as measured by Doppler, is 22.95mmHg. There is no pulmonic regurgitation present. The aortic root size is normal. Normal inferior vena cava with normal inspiratory collapse consistent with estimated right atrial pre ssure of 5 mmHg. There is a large, generalized pericardial effusion present. CONCLUSIONS -------- 1. Sinus rhythm. 2. This was a technically good study. 3. The left ventricular size is normal. 4. There is moderate concentric left ventricular hypertrophy. 5. There is normal global left ventricular contractility. 6. Overall left ventricular systolic function is normal with, an EF between 55 - 60 %. 7. The diastolic filling pattern is normal for the age of the patient 16.92 8. The right ventricle is mildly enlarged. 9. Normal LA size by volume 22+/-6 ml/m2. 10. The right atrial size is normal. 11. Interatrial and interventricular septum intact. 12. The aortic valve is trileaflet and appears structurally normal. 13. There is no evidence of aortic regurgitation. 14. There is no evidence of aortic stenosis. 15. No mitral regurgitation. 16. Mild tricuspid regurgitation present. 17. There is no evidence of pulmonary hypertension. 18. The right ventricular systolic pressure, as measured by Doppler, is 22.95mmHg. 19. There is no pulmonic regurgitation present. 20. The aortic root size is normal. 21. Normal inferior vena cava with normal inspiratory collapse consistent with estimated right atrial pressure of 5 mmHg. 22. There is a large, generalized pericardial effusion present. No tamponade EXPORT COORDINATOR: Ana Guerrier RDCS
[2019-08-21] MEDS: CHOLECALCIFEROL 1,000 UNIT TAB PO SCH (19:37)
[2019-08-21] MEDS: MULTIVITAMINS, THERA 1 EACH TAB PO SCH (19:37)
[2019-08-22] MEDS: LEVOTHYROXINE 125 MCG TAB PO SCH (05:57)
[2019-08-22] MEDS: amLODIPine 5 MG TAB PO SCH (05:57)
[2019-08-22] MEDS: PANTOPRAZOLE 40 MG TABLET PO SCH (05:57)
[2019-08-22 06:23] LABS: Basophils # (A) 0.1 k/uL (0-0.2); Basophils % (A) 1 %; Eosinophils # (A) 0.5 k/uL (0-0.7); Eosinophils % (A) 7 %; HGB 12.3 gm/dL (11.4-16.0); Lymphocytes # (A) 1.9 k/uL (1.0-4.8); Lymphocytes % (A) 24 %; MCH 30.8 pg (25.0-35.0); MCHC 31.5 g/dL (31.0-37.0); MCV 97.6 fL (80.0-100.0); Mean Platelet Volume 9.2; Monocytes # (A) 0.4 k/uL (0-1.0); Monocytes % (A) 6 %; Neutrophils # (A) 4.8 k/uL (1.3-7.7); Neutrophils % (A) 61 %; Platelet Count 254 k/uL (150-450); RBC 3.99 m/uL (3.80-5.40); RDW 13.4 % (11.5-15.5); WBC 7.8 k/uL (3.8-10.6)
[2019-08-22 06:42] LABS: Albumin 3.1 g/dL (3.5-5.0); Calcium 9.8 mg/dL (8.4-10.2); Potassium 4.5 mmol/L (3.5-5.1); Total Bilirubin 0.3 mg/dL (0.2-1.3); Total Protein 5.7 g/dL (6.3-8.2)
[2019-08-22] MEDS: HEPARIN SODIUM,PORCINE 5,000 UNIT/ML 1 ML VIAL SQ SCH ×2 (08:20→20:16)
--- NOTE | 2019-08-22 09:29 | P.PN ---
Subjective Progress Note Date: 08/22/19 78-year-old female who moved from [facility] this past year I started seen almost a year ago who is known to have history of hypertension hyperlipidemia hypothyroidism with lipoma and a growth in the right upper extremity. Patient was seen in the office 3 weeks ago for worsening shortness of breath have mild abnormal EKG and louder murmur ended up going for an echocardiogram which showed large pericardial effusion. Patient had no temporal not so far was called by cardiology who is doing then to patient for the echo and advised to have patient hospitalized for possible cardiac window. Patient is symptomatic currently having significant shortness of breath PND orthopnea mild hypertension severe tiredness fatigue abnormal balancing gait with generalized weakness become a lot worse lately. 08/21/2019: Patient is resting comfortably in bed without any complaints or concerns. Possible pericardial window ordered for tomorrow. Echo ordered for today. Due to the patient's hypercalcemia CT of the chest abdomen and pelvis ordered today. Patient has no new complaints or concerns. Patient has been afebrile, blood pressure 154/70, heart rate 81, respirations 16, pulse ox 97% on room air. Potassium 4.2, BUN 19, creatinine 1.19, calcium 9.9 this morning, TSH 5.850 08/22/2019: Patient is resting comfortably in bed without any complaints or concerns. Patient is scheduled for pericardial 100 this afternoon. Repeat echo shows moderate concentric left ventricular atrophy, EF between 55 and 60%, right ventricle is moderately enlarged, normal LA size right atrial size is normal mild tricuspid regurgitation. A large generalized pericardial effusion present no tamponade. CT chest abdomen pelvis with and without contrast impression: Nonspecific cystic lesion left ovary, pericardial effusion, 6 hiatal hernia moderate size Review of systems CONSTITUTIONAL: Well-developed no acute respiratory distress. Positive EYES: No icterus sclerae, no conjunctivitis. EARS, NOSE, MOUTH, THROAT, and FACE: No sore throat, lymphadenopathy, carotid bruits or deformity. RESPIRATORY: Shortness of breath with minimum exertion. CARDIOVASCULAR: Positive PND orthopnea palpitation with mild chest pain and shortness of breath. GASTROINTESTINAL: No Abd pain, Nausea or vomiting, no Diarrhea or constipation, No GI Bleed, no distention or masses. GENITOURINARY: Negative for Hematuria or UTI, no kidney stones. INTEGUMENT/BREAST: Large lipoma on the growth on the right upper extremity. HEMATOLOGIC/LYMPHATIC: Negative for bleed or purpura. MUSCULOSKELTAL: Negative for Myalgia or arthralgia. NEURLOGICAL: No LOC, Sz or syncope, blurred vision dizziness or abnormality.. Positive normal balance and gait with slight decrease in memory. BEHAVIORAL/PSYCH: Negative. ENDOCRINE: Negative. Objective - Vital Signs Vital signs: Vital Signs Temp 98 F 08/22/19 08:00 Pulse 71 08/22/19 08:00 Resp 18 08/22/19 08:00 BP 149/69 08/22/19 08:00 Pulse Ox 96 08/22/19 08:00 Intake & Output 08/21/19 08/22/19 08/22/19 18:59 06:59 18:59 Intake Total 330 0 Output Total 500 500 Balance -170 -500 0 Weight 52 kg Intake: Oral 330 0 Output: Urine 500 500 Other: Voiding Method Toilet Toilet # Voids 1 # Bowel Movements 0 - Exam General Appearance: Alert, cooperative, no distress, 78-year-old appears stated age. Neck HEENT: Supple, no lymphadenopathy, no thyroid enlargement, no carotid bruits. Lungs: Decreased breath some bilateral rhonchi no crackles. Chest Wall: Decrease expansion with deep inspiration no tenderness and no deformity was found on exam, no costochondral pain or discomfort. Heart: Regular rhythm and rate S1-S2 positive mild tachycardia positive S3 2/6 ejection systolic murmur Back: Symmetric, no curvature, ROM normal, no CVA tenderness. Abdomen: Soft, non-tender, bowel sounds active all four quadrants, no masses, no organomegaly. Extremities: Trace edema decreased pulse bilaterally started lipoma on the right upper extremity with mild bruises from recent injury. Pulses: 2+ and symmetric. Skin: Skin color, texture, tugor normal, no rashes or lesions. Neurologic: Alert oriented x3 cranial nerves II through XII intact, positive generalized weakness was generalized abnormal balance and gait. Slight memory loss. - Labs CBC & Chem 7: 08/22/19 05:33 08/22/19 05:33 Labs: Abnormal Lab Results - Last 24 Hours (Table) 08/22/19 Range/Units 05:33 Creatinine 1.26 H (0.52-1.04) mg/dL Total Protein 5.7 L (6.3-8.2) g/dL Albumin 3.1 L (3.5-5.0) g/dL Assessment and Plan Plan: 1 large pericardial effusion: Not acutely etiology at this point, patient will be hospitalized, cardiology consult Appreciated, echo results noted above, continue with IV diuretics, cardiothoracic surgery for laryngeal today. 2 significant shortness of breath and dyspnea: Most likely from pericardial effusion and mild heart failure. 3 hypertension: Continue patient on amlodipine 5 mg a day blood pressure has been elevated we'll add hydralazine 25 mg every 6 hours for systolic above 160. 4 hypothyroidism: Continue patient on levothyroxine total of 66 g daily. TSH 5.580 5 severe GERD: Patient be on Pepcid 20 mg daily. 6 acute kidney injury: Creatinine 1.19, continue to monitor BUN/creatinine 7 hypercalcemia: PTH intact 70.9, CT of chest abdomen pelvis with and without contrast impression noted above 8 large happen hernia: Patient can benefit from PPI watch for any sign of bleed. 9 mild arrhythmia: Patient is having PVCs can benefit from small dose of beta mamta. 10 possible coronary artery disease: Patient described no previous history of [place] that she had Q waves on the inferior area with possible area further testing including stress test or heart cath can be beneficial. 11 hyperglycemia: Has been on diet control A1c was mildly elevated patient to continue current management. 12 severe spinal stenosis mostly lumbar on chronic in origin on conservative management and physical therapy. 13 DVT prophylaxis: Continue patient on heparin subcutaneous. 14 GI prophylaxis: Continue patient on pantoprazole. 15. Covid 19 not detected CODE STATUS: Full code. Admit patient to inpatient service for more than 2 night stay. Impression and plan of care have been directed as dictated by the signing physician. Ave Morris nurse practitioner acting as scribe for signing physician.
[2019-08-22] MEDS ORDERED: HYDROmorphone 0.5 MG/0.5 ML SYRINGE IVP PRN (09:44)
[2019-08-22] MEDS ORDERED: LACTATED RINGERS 1,000 ML IV SCH (09:45)
[2019-08-22] MEDS ORDERED: LACTATED RINGERS 1,000 ML IV ONE (10:43)
[2019-08-22] MEDS ORDERED: LIDOCAINE 1% INJ 10MG/ML (20 ML MDV) SQ ONE ×3 (10:49→11:18)
[2019-08-22] MEDS ORDERED: PROPOFOL 10 MG/ML 20 ML VIAL IV ONE (11:01)
[2019-08-22] MEDS ORDERED: KETAMINE 10 MG/ML 20 ML VIAL ONE (11:01)
[2019-08-22] MEDS ORDERED: fentaNYL (PF) 50 MCG/ML 2 ML AMP ONE (11:01)
[2019-08-22] MEDS ORDERED: MIDAZOLAM 2 MG/2 ML VIAL ONE (11:01)
[2019-08-22] MEDS ORDERED: ONDANSETRON 4 MG/2 ML VIAL IVP ONE (12:02)
--- NOTE | 2019-08-22 12:02 | P.OP ---
Date of Procedure: 08/22/19 Preoperative Diagnosis: Pericardial effusion Postoperative Diagnosis: Same Procedure(s) Performed: Subxiphoid pericardial window Anesthesia: IRVING HERNANDEZ Surgeon: Scar Mei Sighter #1: Kamila Renteria Estimated Blood Loss (ml): 2 IV fluids (ml): 200 Pathology: other (Pericardium for pathology; pericardial fluid for cytology, cell count, chemistry, cultures) Condition: stable Disposition: PACU Indications for Procedure: 78-year-old female presents from her physician's office. She is asymptomatic. Echocardiogram has demonstrated moderate pericardial effusion. She was admitted for workup of this. Pericardial window with biopsy of the pericardium and drainage of pericardial fluid was requested for diagnosis. Operative Findings: Pericardial fluid was not under pressure. Pericardial fluid was clear and serous. Pericardium was normal in appearance. There were no implants or abnormalities noted within the pericardial sac. Description of Procedure: The patient was brought to the operating room placed supine on the operating table, IV sedation was administered. The anterior chest and upper abdomen were sterilely prepped and draped. After appropriate surgical timeout, 1% lidocaine was used to anesthetize the skin and underlying tissues in the region of the xiphoid and just below it. Incision was made along the lateral aspect of the xiphoid on the left and carried down onto the midline. The midline fascia was its in size and opened about an inch below the xiphoid and superiorly along the left side of the xiphoid. A finger was extended up underneath the sternum and used to dissected upwards. The diaphragm was palpated and grasped with a Felecia clamp and retracted inferiorly. The xiphoid was retracted superiorly. The pericardium was identified and incised. Clear pericardial fluid under no pressure was noted. Samples were collected for pathology cytology and culture and chemistry and cell count studies. This included a small piece of pericar dium. A finger was placed within the pericardial sac and the pericardial sac was explored to the extent possible with the length of the finger. No abnormalities were noted. Separate stab incision was made to the right of midline in the right upper quadrant after anesthesia with 1% lidocaine and 32- Luxembourgish right angle chest tube was tunneled beneath the fascia into the incision. Was passed through the pericardial opening and into the inferior pericardium. It was secured at the skin with 0 Ethibond suture. After assuring good hemostasis, fascia was closed with 0 Ethibond suture, the subcutaneous tissue with 0 Ethibond suture, the skin was closed with 4-0 Vicryl subcuticular stitch. Skin glue was applied to the incision and dry sterile dressings were applied. The patient was transferred to recovery room in stable condition.
[2019-08-22 12:59] LABS: Appearance,BF Hazy; Color,BF Yellow; RBC, Body Fluid 215 /uL
[2019-08-22 13:00] LABS: Nucleated Cells, Body Fluid 120 /uL
[2019-08-22 13:01] LABS: Mononuclear WBC,Body Fluid 99 %; Total Cells Counted,Body Fluid 100
[2019-08-22] MEDS: CHOLECALCIFEROL 1,000 UNIT TAB PO SCH (14:31)
[2019-08-22] MEDS: MULTIVITAMINS, THERA 1 EACH TAB PO SCH (14:31)
[2019-08-22] MEDS ORDERED: HYDROcodone/APAP 5-325MG 1 EACH TAB PO PRN (15:42)
[2019-08-22] MEDS: SODIUM CHLORIDE 0.9% 1,000 ML IV SCH (20:05)
[2019-08-23] MEDS: SODIUM CHLORIDE 0.9% 1,000 ML IV SCH ×4 (02:38→20:42)
[2019-08-23] MEDS: PANTOPRAZOLE 40 MG TABLET PO SCH (05:48)
[2019-08-23] MEDS: LEVOTHYROXINE 125 MCG TAB PO SCH (05:48)
[2019-08-23] MEDS: amLODIPine 5 MG TAB PO SCH (05:49)
--- NOTE | 2019-08-23 07:26 | P.PN ---
Subjective Progress Note Date: 08/23/19 Principal diagnosis: Large pericardial effusion, acute kidney injury, hypercalcemia. Previous medical history of hypertension, hypothyroid, Mnire's disease, frequent falls, previous tobacco dependence, family history of myocardial infarction and cancer, unintentional 40 pound weight loss in the last 60 months POD #1 subxiphoid pericardial window The patient is currently sitting up in bed on this cardiac stepdown unit in no acute distress. Denies pain, states shortness of breath has significantly improved. Pericardial chest tube remains present with thin serosanguineous drainage. No new concerns. Objective - Vital Signs Vital signs: Vital Signs Temp 98.4 F 08/23/19 03:10 Pulse 81 08/23/19 03:10 Resp 17 08/23/19 03:10 BP 104/57 08/23/19 05:47 Pulse Ox 93 L 08/23/19 03:10 Intake & Output 08/22/19 08/23/19 08/23/19 18:59 06:59 18:59 Intake Total 970 Output Total 186 264 Balance 784 -264 Weight 52.3 kg Intake: IV 850 Oral 120 Output: Chest Tube Drainage 176 264 Lower Anterior Chest 176 264 Estimated Blood Loss 10 Other: Voiding Method Toilet Toilet # Voids 1 2 # Bowel Movements 0 - Constitutional General appearance: Present: cooperative, no acute distress - Respiratory Details: Lungs sounds diminished bilaterally. Respirations even, nonlabored. Currently on room air with oxygen saturation 93%. Able to achieve 1250 mL on incentive spirometry. Strong cough. - Cardiovascular Details: S1, S2 present. Regular rate and rhythm, sinus rhythm on telemetry. Palpable peripheral pulses bilaterally. No edema present. No calf pain or tenderness noted. Pericardial chest tube present, 264 mL thin serosanguineous drainage overnight, 450 mL since surgery. - Gastrointestinal Gastrointestinal Comment(s): Abdomen soft, nontender, nondistended. Active bowel sounds present 4 quadrants. Tolerating diet. - Genitourinary Genitourinary Comment(s): Continues to void clear, yellow urine - Integumentary Integumentary Comment(s): Skin is warm and dry with evidence of good perfusion. Large lipoma-like growth on the right upper extremity, without drainage - Neurologic Neurologic: Present: CNII-XII intact - Musculoskeletal Musculoskeletal: Present: strength equal bilaterally - Psychiatric Psychiatric: Present: A&O x's 3, appropriate affect, intact judgment & insight - Allied health notes Allied health notes reviewed: nursing - Labs CBC & Chem 7: 08/22/19 05:33 08/22/19 05:33 Labs: Microbiology - Last 24 Hours (Table) 08/22/19 11:40 Gram Stain - Preliminary Pericardial Fluid Body Fluid Culture - Preliminary 08/22/19 11:40 Acid Fast Bacilli Culture - Preliminary Pericardial Fluid 08/22/19 11:40 Fungal Culture - Preliminary Pericardial Fluid Assessment and Plan Assessment: 1. Large pericardial effusion, status post sub-xiphoid pericardial window 2. Acute kidney injury 3. Hypercalcemia 4. Hypertension 5. Hypothyroid 6. Mnire's disease 7. Frequent falls 8. Previous tobacco dependence 9. Family history of myocardial infarction and cancer 10. Unintentional 40 pound weight loss in the last 6 months Plan: 1. Continue pericardial drainage tube to waterseal. Monitor drainage 2. Await cytology and culture studies 3. Increase activity, ambulate as tolerated 4. Encourage incentive spirometry is 10 times every hour while awake 5. GI/DVT prophylaxis 6. Pain control current medication regimen 7. Medical management of other comorbidities per primary care service and cardiology 8. More recommendations to follow Time with Patient: Greater than 30
[2019-08-23 07:53] LABS: HCT 39.7 % (34.0-46.0); HGB 12.8 gm/dL (11.4-16.0); MCH 31.9 pg (25.0-35.0); MCHC 32.1 g/dL (31.0-37.0); MCV 99.2 fL (80.0-100.0); Mean Platelet Volume 9.3; Platelet Count 247 k/uL (150-450); RDW 13.3 % (11.5-15.5); WBC 15.4 k/uL (3.8-10.6)
[2019-08-23 08:02] LABS: Calcium 9.4 mg/dL (8.4-10.2); Potassium 4.3 mmol/L (3.5-5.1)
[2019-08-23] MEDS: HEPARIN SODIUM,PORCINE 5,000 UNIT/ML 1 ML VIAL SQ SCH ×2 (10:06→20:42)
[2019-08-23] MEDS: MULTIVITAMINS, THERA 1 EACH TAB PO SCH (12:10)
[2019-08-23] MEDS: CHOLECALCIFEROL 1,000 UNIT TAB PO SCH (12:10)
[2019-08-23 14:01] LABS: Glucose, Body Fluid 101 mg/dL; Total Protein, Body Fluid 3700 mg/dL
--- NOTE | 2019-08-23 14:15 | PN ---
PROGRESS NOTE Mrs Hogan had a pericardial drainage performed because of pericardial effusion by Dr. Nael Mei yesterday. She still has a tube. The drainage is not much. She is actually doing better, resting comfortably. I am recommending that we continue IV fluids at 100 mL/hour. Her creatinine has gone up. I will therefore hydrate her, pericardial rub is evident. I am also going to recommend an echo as a followup study tomorrow. Vitals are stable. No JVD. S1-S2 heard normally, short pericardial rub audible. Lungs reveal diminished air entry. Abdomen and lower extremity exam unchanged. Will increase IV fluids to 100 mL/hour, normal saline. Check a BMP tomorrow and also do echocardiogram. This will be a limited study to look at any pericardial effusion. MMODL / IJN: [id number] /
--- NOTE | 2019-08-23 14:53 | P.PN ---
Subjective Progress Note Date: 08/23/19 78-year-old female who moved from [facility] this past year I started seen almost a year ago who is known to have history of hypertension hyperlipidemia hypothyroidism with lipoma and a growth in the right upper extremity. Patient was seen in the office 3 weeks ago for worsening shortness of breath have mild abnormal EKG and louder murmur ended up going for an echocardiogram which showed large pericardial effusion. Patient had no temporal not so far was called by cardiology who is doing then to patient for the echo and advised to have patient hospitalized for possible cardiac window. Patient is symptomatic currently having significant shortness of breath PND orthopnea mild hypertension severe tiredness fatigue abnormal balancing gait with generalized weakness become a lot worse lately. 08/21/2019: Patient is resting comfortably in bed without any complaints or concerns. Possible pericardial window ordered for tomorrow. Echo ordered for today. Due to the patient's hypercalcemia CT of the chest abdomen and pelvis ordered today. Patient has no new complaints or concerns. Patient has been afebrile, blood pressure 154/70, heart rate 81, respirations 16, pulse ox 97% on room air. Potassium 4.2, BUN 19, creatinine 1.19, calcium 9.9 this morning, TSH 5.850 08/22/2019: Patient is resting comfortably in bed without any complaints or concerns. Patient is scheduled for pericardial 100 this afternoon. Repeat echo shows moderate concentric left ventricular atrophy, EF between 55 and 60%, right ventricle is moderately enlarged, normal LA size right atrial size is normal mild tricuspid regurgitation. A large generalized pericardial effusion present no tamponade. CT chest abdomen pelvis with and without contrast impression: Nonspecific cystic lesion left ovary, pericardial effusion, 6 hiatal hernia moderate size 08/22: Yesterday, patient underwent pericardial window with Dr. Mei. Patient's breathing status is currently stable. Pathology report is pending. Pericardial drainage tube remains in place. This is to be removed on Friday. We will add in PT and OT with anticipated need for subacute rehab. She is reaching 1500 mils on incentive spirometry. Patient is afebrile, heart rate 71, blood pressure 123/56, pulse ox 96% on room air repeat blood work reveals WBC 15.4, hemoglobin 12.8. BUN 17 creatinine 1.5, sodium 135. Limited echocardiogram repeated today. Review of systems CONSTITUTIONAL: Well-developed no acute respiratory distress. Denies fever, denies chills. EYES: No icterus sclerae, no conjunctivitis. EARS, NOSE, MOUTH, THROAT, and FACE: No sore throat, lymphadenopathy, carotid bruits or deformity. RESPIRATORY: Shortness of breath with minimum exertion. CARDIOVASCULAR: Positive PND orthopnea palpitation with mild chest pain and shortness of breath. GASTROINTESTINAL: No Abd pain, Nausea or vomiting, no Diarrhea or constipation, No GI Bleed, no distention or masses. GENITOURINARY: Negative for Hematuria or UTI, no kidney stones. INTEGUMENT/BREAST: Large lipoma on the growth on the right upper extremity. HEMATOLOGIC/LYMPHATIC: Negative for bleed or purpura. MUSCULOSKELTAL: Negative for Myalgia or arthralgia. NEURLOGICAL: No LOC, Sz or syncope, blurred vision dizziness or abnormality.. Positive normal balance and gait with slight decrease in memory. BEHAVIORAL/PSYCH: Negative. ENDOCRINE: Negative. Physical examination General Appearance: Alert, cooperative, no distress, 78-year-old appears stated age. Neck HEENT: Supple, no lymphadenopathy, no thyroid enlargement, no carotid bruits. Lungs: Decreased breath some bilateral rhonchi no crackles. Chest Wall: Decrease expansion with deep inspiration no tenderness and no deformity was found on exam, no costochondral pain or discomfort. Heart: Regular rhythm and rate S1-S2 positive mild tachycardia positive S3 2/6 ejection systolic murmur Back: Symmetric, no curvature, ROM normal, no CVA tenderness. Abdomen: Soft, non-tender, bowel sounds active all four quadrants, no masses, no organomegaly. Extremities: Trace edema decreased pulse bilaterally started lipoma on the right upper extremity with mild bruises from recent injury. Pulses: 2+ and symmetric. Skin: Skin color, texture, tugor normal, no rashes or lesions. Neurologic: Alert oriented x3 cranial nerves II through XII intact, positive generalized weakness was generalized abnormal balance and gait. Slight memory loss. Assessment and plan 1 large pericardial effusion: Status post pericardial window. Continue drainage tube. 2 significant shortness of breath and dyspnea: Most likely from pericardial effusion and mild heart failure. No Lasix. 3 hypertension. Continue amlodipine 5 mg daily, hydralazine 25 mg every 6 hours as needed. 4 hypothyroidism: Continue patient on levothyroxine total of 66 g daily. TSH 5.580 5 severe GERD: Patient be on Pepcid 20 mg daily. 6 acute kidney injury: Creatinine 1.19, continue to monitor BUN/creatinine 7 hypercalcemia: PTH intact 70.9. 8 large happen hernia: Patient can benefit from PPI watch for any sign of bleed. 9 mild arrhythmia: Patient is having PVCs. 10 possible coronary artery disease: Patient described no previous history of [place] that she had Q waves on the inferior area with possible area further testing including stress test or heart cath can be beneficial. 11 hyperglycemia: Has been on diet control A1c was mildly elevated patient to continue current management. 12 severe spinal stenosis mostly lumbar on chronic in origin on conservative management and physical therapy. 13 DVT prophylaxis: Continue patient on heparin subcutaneous. 14 GI prophylaxis: Continue patient on pantoprazole. 15. Covid 19 infection not present. CODE STATUS: Full code. Discharge plan: Possible subacute rehab on . Impression and plan of care have been directed as dictated by the signing physician. Mary Mathews nurse practitioner acting as scribe for signing physician. Objective - Vital Signs Vital signs: Vital Signs Temp 98.4 F 08/23/19 03:10 Pulse 81 08/23/19 03:10 Resp 17 08/23/19 03:10 BP 104/57 08/23/19 05:47 Pulse Ox 93 L 08/23/19 03:10 Intake & Output 08/22/19 08/23/19 08/23/19 18:59 06:59 18:59 Intake Total 970 180 Output Total 186 264 Balance 784 -264 180 Weight 52.3 kg Intake: IV 850 Oral 120 180 Output: Chest Tube Drainage 176 264 Lower Anterior Chest 176 264 Estimated Blood Loss 10 Other: Voiding Method Toilet Toilet # Voids 1 2 # Bowel Movements 0 - Labs CBC & Chem 7: 08/23/19 06:38 08/23/19 06:38 Labs: Abnormal Lab Results - Last 24 Hours (Table) 08/23/19 08/23/19 Range/Units 06:38 06:38 WBC 15.4 H (3.8-10.6) k/uL Sodium 135 L (137-145) mmol/L Creatinine 1.50 H (0.52-1.04) mg/dL Microbiology - Last 24 Hours (Table) 08/22/19 11:40 Gram Stain - Preliminary Pericardial Fluid Body Fluid Culture - Preliminary 08/22/19 11:40 Acid Fast Bacilli Culture - Preliminary Pericardial Fluid 08/22/19 11:40 Fungal Culture - Preliminary Pericardial Fluid
[2019-08-24 06:28] LABS: HCT 36.9 % (34.0-46.0); HGB 11.8 gm/dL (11.4-16.0); MCH 31.8 pg (25.0-35.0); MCV 99.3 fL (80.0-100.0); Mean Platelet Volume 9.2; Platelet Count 222 k/uL (150-450); RBC 3.72 m/uL (3.80-5.40); RDW 13.3 % (11.5-15.5); WBC 12.4 k/uL (3.8-10.6)
[2019-08-24] MEDS: SODIUM CHLORIDE 0.9% 1,000 ML IV SCH (06:33)
[2019-08-24] MEDS: amLODIPine 5 MG TAB PO SCH (06:33)
[2019-08-24] MEDS: LEVOTHYROXINE 125 MCG TAB PO SCH (06:33)
[2019-08-24] MEDS: PANTOPRAZOLE 40 MG TABLET PO SCH (06:33)
[2019-08-24 06:39] LABS: Calcium 8.9 mg/dL (8.4-10.2); Potassium 4.4 mmol/L (3.5-5.1)
--- NOTE | 2019-08-24 07:41 | P.PN ---
Subjective Progress Note Date: 08/24/19 Principal diagnosis: Large pericardial effusion, acute kidney injury, hypercalcemia. Previous medical history of hypertension, hypothyroid, Mnire's disease, frequent falls, previous tobacco dependence, family history of myocardial infarction and cancer, unintentional 40 pound weight loss in the last 60 months POD #2 subxiphoid pericardial window The patient is currently sitting up in bed on this cardiac stepdown unit in no acute distress. Denies pain, states shortness of breath has significantly improved. Pericardial chest tube remains present with thin serosanguineous drainage. No new concerns, patient anxious to go home. Objective - Vital Signs Vital signs: Vital Signs Temp 97.7 F 08/24/19 04:00 Pulse 76 08/24/19 04:00 Resp 17 08/24/19 04:00 BP 146/66 08/24/19 04:00 Pulse Ox 94 L 08/24/19 04:00 Intake & Output 08/23/19 08/24/19 08/24/19 18:59 06:59 18:59 Intake Total 1693 Output Total 80 Balance 1693 -80 Weight 53.4 kg Intake: Intake, IV Titration 800 Amount Sodium Chloride 0.9% 1, 800 000 ml @ 100 mls/hr IV . Q10H [facility] Rx#:[id number] Oral 893 Output: Chest Tube Drainage 80 Lower Anterior Chest 80 Other: Voiding Method Toilet # Voids 2 1 # Bowel Movements 1 - Constitutional General appearance: Present: cooperative, no acute distress, thin - Respiratory Details: Lungs sounds diminished bilaterally. Respirations even, nonlabored. Currently on room air with oxygen saturation 94%. Able to achieve 750 mL on incentive spirometry. Strong cough. - Cardiovascular Details: S1, S2 present. Regular rate and rhythm, sinus rhythm on telemetry. Palpable peripheral pulses bilaterally. No edema present. No calf pain or tenderness noted. Pericardial chest tube present, 80 mL thin serosanguineous drainage overnight, 150 mL in the last 24 hours. - Gastrointestinal Gastrointestinal Comment(s): Abdomen soft, nontender, nondistended. Active bowel sounds present 4 quadrants. Tolerating diet. - Genitourinary Genitourinary Comment(s): Continues to void clear, yellow urine - Integumentary Integumentary Comment(s): Skin is warm and dry with evidence of good perfusion. Large lipoma-like growth on the right upper extremity, without drainage - Neurologic Neurologic: Present: CNII-XII intact - Musculoskeletal Musculoskeletal: Present: strength equal bilaterally - Psychiatric Psychiatric: Present: A&O x's 3, appropriate affect, intact judgment & insight - Allied health notes Allied health notes reviewed: nursing - Labs CBC & Chem 7: 08/24/19 06:11 08/24/19 06:11 Labs: Abnormal Lab Results - Last 24 Hours (Table) 08/23/19 08/23/19 08/24/19 Range/Units 06:38 06:38 06:11 WBC 15.4 H 12.4 H (3.8-10.6) k/uL RBC 3.72 L (3.80-5.40) m/uL Sodium 135 L (137-145) mmol/L Chloride (98-107) mmol/L Creatinine 1.50 H (0.52-1.04) mg/dL 08/24/19 Range/Units 06:11 WBC (3.8-10.6) k/uL RBC (3.80-5.40) m/uL Sodium (137-145) mmol/L Chloride 109 H (98-107) mmol/L Creatinine 1.40 H (0.52-1.04) mg/dL Microbiology - Last 24 Hours (Table) 08/22/19 11:40 Acid Fast Bacilli Smear - Final Pericardial Fluid Acid Fast Bacilli Culture - Preliminary 08/22/19 11:40 Gram Stain - Preliminary Pericardial Fluid Body Fluid Culture - Preliminary Assessment and Plan Assessment: 1. Large pericardial effusion, status post sub-xiphoid pericardial window 2. Acute kidney injury 3. Hypercalcemia 4. Hypertension 5. Hypothyroid 6. Mnire's disease 7. Frequent falls 8. Previous tobacco dependence 9. Family history of myocardial infarction and cancer 10. Unintentional 40 pound weight loss in the last 6 months Plan: 1. Continue pericardial drainage tube to waterseal. Monitor drainage 2. Await cytology and culture studies 3. Increase activity, ambulate as tolerated 4. Encourage incentive spirometry is 10 times every hour while awake 5. GI/DVT prophylaxis 6. Pain control current medication regimen 7. Medical management of other comorbidities per primary care service and cardiology 8. Consider short course of steroids for pericarditis, avoid NSAIDS due to nephrotoxicity 9. More recommendations to follow Time with Patient: Greater than 30
[2019-08-24] MEDS: HEPARIN SODIUM,PORCINE 5,000 UNIT/ML 1 ML VIAL SQ SCH ×2 (08:51→21:58)
--- NOTE | 2019-08-24 11:39 | ECHOF ---
Referral Reason:lv function MEASUREMENTS -------- HEIGHT: 165.1 cm WEIGHT: 52.2 kg BP: FINDINGS -------- Sinus rhythm. Echo done 08/21/19: limited study for lv function. Grossly normal LV size and systolic function. Unable to comment on regional wall motion. Moderator band is visualized in the right ventricular apex. There is a trivial pericardial effusion present. CONCLUSIONS -------- 1. Echo done 08/21/19: limited study for lv function. 2. Grossly normal LV size and systolic function. Unable to comment on regional wall motion. 3. There is a trivial pericardial effusion present. DELICATESSEN SLICER: Nadira Hayward RDCS
--- NOTE | 2019-08-24 12:17 | PN ---
PROGRESS NOTE Mrs. Hogan had a pericardial effusion that was drained. She is doing better today. There is very little drainage in the pericardial tube. Echo revealed a very scanty effusion. This is a significant improvement. I suspect the tube will come out today. I hear a pericardial rub. Vitals are stable, S1-S2 heard normally. There is a pericardial rub noted. Lungs revealed decent air entry. Abdomen and lower extremity exam unchanged. Pericardial fluid studies are not back yet. Plan is to continue current medications, increase activity. Possible discharge in the next 24 to 48 hours. MMODL / IJN: [id number] /
--- NOTE | 2019-08-24 13:52 | P.PN ---
Subjective Progress Note Date: 08/24/19 78-year-old female who moved from [facility] this past year I started seen almost a year ago who is known to have history of hypertension hyperlipidemia hypothyroidism with lipoma and a growth in the right upper extremity. Patient was seen in the office 3 weeks ago for worsening shortness of breath have mild abnormal EKG and louder murmur ended up going for an echocardiogram which showed large pericardial effusion. Patient had no temporal not so far was called by cardiology who is doing then to patient for the echo and advised to have patient hospitalized for possible cardiac window. Patient is symptomatic currently having significant shortness of breath PND orthopnea mild hypertension severe tiredness fatigue abnormal balancing gait with generalized weakness become a lot worse lately. 08/21/2019: Patient is resting comfortably in bed without any complaints or concerns. Possible pericardial window ordered for tomorrow. Echo ordered for today. Due to the patient's hypercalcemia CT of the chest abdomen and pelvis ordered today. Patient has no new complaints or concerns. Patient has been afebrile, blood pressure 154/70, heart rate 81, respirations 16, pulse ox 97% on room air. Potassium 4.2, BUN 19, creatinine 1.19, calcium 9.9 this morning, TSH 5.850 08/22/2019: Patient is resting comfortably in bed without any complaints or concerns. Patient is scheduled for pericardial 100 this afternoon. Repeat echo shows moderate concentric left ventricular atrophy, EF between 55 and 60%, right ventricle is moderately enlarged, normal LA size right atrial size is normal mild tricuspid regurgitation. A large generalized pericardial effusion present no tamponade. CT chest abdomen pelvis with and without contrast impression: Nonspecific cystic lesion left ovary, pericardial effusion, 6 hiatal hernia moderate size 08/22: Yesterday, patient underwent pericardial window with Dr. Mei. Patient's breathing status is currently stable. Pathology report is pending. Pericardial drainage tube remains in place. This is to be removed on Friday. We will add in PT and OT with anticipated need for subacute rehab. She is reaching 1500 mils on incentive spirometry. Patient is afebrile, heart rate 71, blood pressure 123/56, pulse ox 96% on room air repeat blood work reveals WBC 15.4, hemoglobin 12.8. BUN 17 creatinine 1.5, sodium 135. Limited echocardiogram repeated today. 08/23: Patient denies any new complaints today. Expect drainage tube to be removed today. Monitor patient overnight and plan for discharge to [facility] for subacute rehab. Patient's been afebrile, heart rate 84, blood pressure 137/62, pulse ox 93% on room air. WBC 12.4, creatinine 1.4. Pathology report remains pending. Review of systems CONSTITUTIONAL: Well-developed no acute respiratory distress. Denies fever, denies chills. EYES: No icterus sclerae, no conjunctivitis. EARS, NOSE, MOUTH, THROAT, and FACE: No sore throat, lymphadenopathy, carotid br uits or deformity. RESPIRATORY: Shortness of breath with minimum exertion. CARDIOVASCULAR: Positive PND orthopnea palpitation with mild chest pain no shortness of breath. GASTROINTESTINAL: No Abd pain, Nausea or vomiting, no Diarrhea or constipation, No GI Bleed, no distention or masses. GENITOURINARY: Negative for Hematuria or UTI, no kidney stones. INTEGUMENT/BREAST: Large lipoma on the growth on the right upper extremity. HEMATOLOGIC/LYMPHATIC: Negative for bleed or purpura. MUSCULOSKELTAL: Negative for Myalgia or arthralgia. NEURLOGICAL: No LOC, Sz or syncope, blurred vision dizziness or abnormality.. Positive normal balance and gait with slight decrease in memory. BEHAVIORAL/PSYCH: Negative. ENDOCRINE: Negative. Physical examination General Appearance: Alert, cooperative, no distress, 78-year-old appears stated age. Patient is resting comfortably in bed. Neck HEENT: Supple, no lymphadenopathy, no thyroid enlargement, no carotid bruits. Lungs: Decreased breath some bilateral rhonchi no crackles. Chest Wall: Decrease expansion with deep inspiration no tenderness and no deformity was found on exam, no costochondral pain or discomfort. Heart: Regular rhythm and rate S1-S2 positive mild tachycardia positive S3 2/6 ejection systolic murmur Back: Symmetric, no curvature, ROM normal, no CVA tenderness. Abdomen: Soft, non-tender, bowel sounds active all four quadrants, no masses, no organomegaly. Extremities: Trace edema decreased pulse bilaterally started lipoma on the right upper extremity with mild bruises from recent injury. Pulses: 2+ and symmetric. Skin: Skin color, texture, tugor normal, no rashes or lesions. Neurologic: Alert oriented x3 cranial nerves II through XII intact, positive generalized weakness was generalized abnormal balance and gait. Slight memory loss. Assessment and plan 1 large pericardial effusion: Status post pericardial window. Continue drainage tube-expect this to be discontinued today. 2 significant shortness of breath and dyspnea: Most likely from pericardial effusion and mild heart failure. No Lasix. 3 hypertension. Continue amlodipine 5 mg daily, hydralazine 25 mg every 6 hours as needed. 4 hypothyroidism: Continue patient on levothyroxine total of 66 g daily. TSH 5.580 5 severe GERD: Patient be on Pepcid 20 mg daily. 6 acute kidney injury: Creatinine 1.19, continue to monitor BUN/creatinine 7 hypercalcemia: PTH intact 70.9. 8 large happen hernia: Patient can benefit from PPI watch for any sign of bleed. 9 mild arrhythmia: Patient is having PVCs. 10 possible coronary artery disease: Patient described no previous history of ID that she had Q waves on the inferior area with possible area further testing including stress test or heart cath can be beneficial. 11 hyperglycemia: Has been on diet control A1c was mildly elevated patient to continue current management. 12 severe spinal stenosis mostly lumbar on chronic in origin on conservative management and physical therapy. 13 DVT prophylaxis: Continue patient on heparin subcutaneous. 14 GI prophylaxis: Continue patient on pantoprazole. 15. Covid 19 infection not present. CODE STATUS: Full code. Discharge plan: [facility] for subacute rehab on Friday. Impression and plan of care have been directed as dictated by the signing physician. Mary Mathews nurse practitioner acting as scribe for signing physician. Objective - Vital Signs Vital signs: Vital Signs Temp 97.7 F 08/24/19 04:00 Pulse 76 08/24/19 04:00 Resp 17 08/24/19 04:00 BP 146/66 08/24/19 04:00 Pulse Ox 94 L 08/24/19 04:00 Intake & Output 08/23/19 08/24/19 08/24/19 18:59 06:59 18:59 Intake Total 1693 Output Total 80 Balance 1693 -80 Weight 53.4 kg Intake: Intake, IV Titration 800 Amount Sodium Chloride 0.9% 1, 800 000 ml @ 100 mls/hr IV . Q10H [facility] Rx#:[id number] Oral 893 Output: Chest Tube Drainage 80 Lower Anterior Chest 80 Other: Voiding Method Toilet # Voids 2 1 # Bowel Movements 1 - Labs CBC & Chem 7: 08/24/19 06:11 08/24/19 06:11 Labs: Abnormal Lab Results - Last 24 Hours (Table) 08/24/19 08/24/19 Range/Units 06:11 06:11 WBC 12.4 H (3.8-10.6) k/uL RBC 3.72 L (3.80-5.40) m/uL Chloride 109 H (98-107) mmol/L Creatinine 1.40 H (0.52-1.04) mg/dL Microbiology - Last 24 Hours (Table) 08/22/19 11:40 Acid Fast Bacilli Smear - Final Pericardial Fluid Acid Fast Bacilli Culture - Preliminary 08/22/19 11:40 Gram Stain - Preliminary Pericardial Fluid Body Fluid Culture - Preliminary
[2019-08-24] MEDS: MULTIVITAMINS, THERA 1 EACH TAB PO SCH (14:22)
[2019-08-24] MEDS: CHOLECALCIFEROL 1,000 UNIT TAB PO SCH (14:23)
[2019-08-25] MEDS: SODIUM CHLORIDE 0.9% 1,000 ML IV SCH ×2 (00:23→11:41)
[2019-08-25] MEDS: LEVOTHYROXINE 125 MCG TAB PO SCH (06:33)
[2019-08-25] MEDS: PANTOPRAZOLE 40 MG TABLET PO SCH (06:33)
[2019-08-25] MEDS: amLODIPine 5 MG TAB PO SCH (06:33)
[2019-08-25 06:40] LABS: HCT 36.2 % (34.0-46.0); HGB 12.1 gm/dL (11.4-16.0); MCH 33.2 pg (25.0-35.0); MCHC 33.3 g/dL (31.0-37.0); MCV 99.6 fL (80.0-100.0); Mean Platelet Volume 9.3; Platelet Count 216 k/uL (150-450); RBC 3.64 m/uL (3.80-5.40)
[2019-08-25 06:52] LABS: Potassium 4.3 mmol/L (3.5-5.1)
[2019-08-25] MEDS ORDERED: methylPREDNISolone 4 MG TAB TAPER PO SCH (09:00)
[2019-08-25] MEDS: HEPARIN SODIUM,PORCINE 5,000 UNIT/ML 1 ML VIAL SQ SCH (09:38)
--- NOTE | 2019-08-25 09:52 | P.PN ---
Subjective Progress Note Date: 08/25/19 Principal diagnosis: Large pericardial effusion, acute kidney injury, hypercalcemia. Previous medical history of hypertension, hypothyroid, Mnire's disease, frequent falls, previous tobacco dependence, family history of myocardial infarction and cancer, unintentional 40 pound weight loss in the last 60 months POD #3 subxiphoid pericardial window The patient is currently sitting up in bed on this cardiac stepdown unit in no acute distress. Denies pain, shortness of breath. Pericardial chest tube remains present with minimal thin serosanguineous drainage. No new concerns. Objective - Vital Signs Vital signs: Vital Signs Temp 98.1 F 08/24/19 20:00 Pulse 75 08/25/19 04:00 Resp 18 08/25/19 04:00 BP 140/67 08/25/19 04:00 Pulse Ox 96 08/25/19 04:00 Intake & Output 08/24/19 08/25/19 08/25/19 18:59 06:59 18:59 Intake Total 1100 200 Output Total 230 210 Balance 870 -210 200 Weight 54.2 kg Intake: Intake, IV Titration 900 Amount Sodium Chloride 0.9% 1, 900 000 ml @ 75 mls/hr IV . [id number] [facility] Rx#:[id number] Oral 200 200 Output: Chest Tube Drainage 30 5 Lower Anterior Chest 30 5 Drainage 5 Right Lower Chest 5 Urine 200 200 Other: Voiding Method Toilet Toilet # Voids 1 - Constitutional General appearance: Present: cooperative, no acute distress - Respiratory Details: Lungs sounds diminished bilaterally. Respirations even, nonlabored. Currently on room air with oxygen saturation 96%. Able to achieve 1250 mL on incentive spirometry. Strong cough. - Cardiovascular Details: S1, S2 present. Regular rate and rhythm, sinus rhythm on telemetry. Palpable peripheral pulses bilaterally. No edema present. No calf pain or tenderness noted. Pericardial chest tube present, 5 mL thin serosanguineous drainage overnight, 50 mL in the last 24 hours. - Gastrointestinal Gastrointestinal Comment(s): Abdomen soft, nontender, nondistended. Active bowel sounds present 4 quadrants. Tolerating diet. - Genitourinary Genitourinary Comment(s): Continues to void clear, yellow urine - Integumentary Integumentary Comment(s): Skin is warm and dry with evidence of good perfusion. Large lipoma-like growth on the right upper extremity, without drainage - Neurologic Neurologic: Present: CNII-XII intact - Musculoskeletal Musculoskeletal: Present: strength equal bilaterally - Psychiatric Psychiatric: Present: A&O x's 3, appropriate affect, intact judgment & insight - Allied health notes Allied health notes reviewed: nursing - Labs CBC & Chem 7: 08/25/19 05:49 08/25/19 05:49 Labs: Abnormal Lab Results - Last 24 Hours (Table) 08/25/19 08/25/19 Range/Units 05:49 05:49 WBC 11.0 H (3.8-10.6) k/uL RBC 3.64 L (3.80-5.40) m/uL Chloride 110 H (98-107) mmol/L Creatinine 1.25 H (0.52-1.04) mg/dL Microbiology - Last 24 Hours (Table) 08/22/19 11:40 Gram Stain - Preliminary Pericardial Fluid Body Fluid Culture - Preliminary Assessment and Plan Assessment: 1. Large pericardial effusion, status post sub-xiphoid pericardial window 2. Acute kidney injury 3. Hypercalcemia 4. Hypertension 5. Hypothyroid 6. Mnire's disease 7. Frequent falls 8. Previous tobacco dependence 9. Family history of myocardial infarction and cancer 10. Unintentional 40 pound weight loss in the last 6 months Plan: 1. Pericardial drainage tube discontinued without incident. 2. Await cytology, pericardial biopsy demonstrates pericarditis 3. Increase activity, ambulate as tolerated 4. Encourage incentive spirometry is 10 times every hour while awake 5. GI/DVT prophylaxis 6. Pain control current medication regimen 7. Medical management of other comorbidities per primary care service and cardiology 8. Consider short course of steroids for pericarditis, avoid NSAIDS due to nephrotoxicity. Medrol Dosepak added 9. Patient is stable. May be discharged him cardiothoracic surgery standpoint when okay with other services Time with Patient: Greater than 30
--- NOTE | 2019-08-25 10:20 | P.PN ---
Subjective Progress Note Date: 08/25/19 78-year-old female who moved from [facility] this past year I started seen almost a year ago who is known to have history of hypertension hyperlipidemia hypothyroidism with lipoma and a growth in the right upper extremity. Patient was seen in the office 3 weeks ago for worsening shortness of breath have mild abnormal EKG and louder murmur ended up going for an echocardiogram which showed large pericardial effusion. Patient had no temporal not so far was called by cardiology who is doing then to patient for the echo and advised to have patient hospitalized for possible cardiac window. Patient is symptomatic currently having significant shortness of breath PND orthopnea mild hypertension severe tiredness fatigue abnormal balancing gait with generalized weakness become a lot worse lately. 08/21/2019: Patient is resting comfortably in bed without any complaints or concerns. Possible pericardial window ordered for tomorrow. Echo ordered for today. Due to the patient's hypercalcemia CT of the chest abdomen and pelvis ordered today. Patient has no new complaints or concerns. Patient has been afebrile, blood pressure 154/70, heart rate 81, respirations 16, pulse ox 97% on room air. Potassium 4.2, BUN 19, creatinine 1.19, calcium 9.9 this morning, TSH 5.850 08/22/2019: Patient is resting comfortably in bed without any complaints or concerns. Patient is scheduled for pericardial 100 this afternoon. Repeat echo shows moderate concentric left ventricular atrophy, EF between 55 and 60%, right ventricle is moderately enlarged, normal LA size right atrial size is normal mild tricuspid regurgitation. A large generalized pericardial effusion present no tamponade. CT chest abdomen pelvis with and without contrast impression: Nonspecific cystic lesion left ovary, pericardial effusion, 6 hiatal hernia moderate size 08/22: Yesterday, patient underwent pericardial window with Dr. Mei. Patient's breathing status is currently stable. Pathology report is pending. Pericardial drainage tube remains in place. This is to be removed on Friday. We will add in PT and OT with anticipated need for subacute rehab. She is reaching 1500 mils on incentive spirometry. Patient is afebrile, heart rate 71, blood pressure 123/56, pulse ox 96% on room air repeat blood work reveals WBC 15.4, hemoglobin 12.8. BUN 17 creatinine 1.5, sodium 135. Limited echocardiogram repeated today. 08/23: Patient denies any new complaints today. Expect drainage tube to be removed today. Monitor patient overnight and plan for discharge to [facility] for subacute rehab. Patient's been afebrile, heart rate 84, blood pressure 137/62, pulse ox 93% on room air. WBC 12.4, creatinine 1.4. Pathology report remains pending. 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 Pericardial fluid cytology is pending. Patient did not have pericardial chest tube removed yesterday. This is scheduled to be removed today and patient has been cleared by cardiothoracic for discharge. They have recommended Medrol Dosepak. Patient is required to have a repeat negative COVID-19 tests prior to discharge. This is been ordered this morning. Patient denies any new complaints. Patient has been afebrile, heart rate 75, blood pressure 140/67, pulse ox 96% on room air. Repeat blood work reveals WBC 11, hemoglobin 12.1, platelet count 216. Sodium 139, potassium 4.3, chloride 110, CO2 26, BUN 13 and creatinine 1.25. Review of systems CONSTITUTIONAL: Well-developed no acute respiratory distress. Denies fever, denies chills. EYES: No icterus sclerae, no conjunctivitis. EARS, NOSE, MOUTH, THROAT, and FACE: No sore throat, lymphadenopathy, carotid bruits or deformity. RESPIRATORY: Shortness of breath with minimum exertion. CARDIOVASCULAR: Positive PND orthopnea palpitation with mild chest pain no shortness of breath. Pericardial drainage tube in place. GASTROINTESTINAL: No Abd pain, Nausea or vomiting, no Diarrhea or constipation, No GI Bleed, no distention or masses. GENITOURINARY: Negative for Hematuria or UTI, no kidney stones. INTEGUMENT/BREAST: Large lipoma on the growth on the right upper extremity. HEMATOLOGIC/LYMPHATIC: Negative for bleed or purpura. MUSCULOSKELTAL: Negative for Myalgia or arthralgia. NEURLOGICAL: No LOC, Sz or syncope, blurred vision dizziness or abnormality.. Positive normal balance and gait with slight decrease in memory. BEHAVIORAL/PSYCH: Negative. ENDOCRINE: Negative. Physical examination General Appearance: Alert, cooperative, no distress, 78-year-old appears stated age. Patient is resting comfortably in bed. Neck HEENT: Supple, no lymphadenopathy, no thyroid enlargement, no carotid bruits. Lungs: Decreased breath some bilateral rhonchi no crackles. Chest Wall: Decrease expansion with deep inspiration no tenderness and no deformity was found on exam, no costochondral pain or discomfort. Heart: Regular rhythm and rate S1-S2 positive mild tachycardia positive S3 2/6 ejection systolic murmur, pericardial rub. Pericardial drainage tube in place. Back: Symmetric, no curvature, ROM normal, no CVA tenderness. Abdomen: Soft, non-tender, bowel sounds active all four quadrants, no masses, no organomegaly. Extremities: Trace edema decreased pulse bilaterally started lipoma on the right upper extremity with mild bruises from recent injury. Pulses: 2+ and symmetric. Skin: Skin color, texture, tugor normal, no rashes or lesions. Neurologic: Alert oriented x3 cranial nerves II through XII intact, positive generalized weakness was generalized abnormal balance and gait. Slight memory loss. Assessment and plan 1 large pericardial effusion: Status post pericardial window. Continue drainage tube-expect this to be discontinued today. 2 significant shortness of breath and dyspnea: Most likely from pericardial effusion and mild heart failure. No Lasix. 3 hypertension. Continue amlodipine 5 mg daily, hydralazine 25 mg every 6 hours as needed. 4 hypothyroidism: Continue patient on levothyroxine total of 66 g daily. TSH 5.580 5 severe GERD: Patient be on Pepcid 20 mg daily. 6 acute kidney injury: Creatinine 1.19, continue to monitor BUN/creatinine 7 hypercalcemia: PTH intact 70.9. 8 large happen hernia: Patient can benefit from PPI watch for any sign of bleed. 9 mild arrhythmia: Patient is having PVCs. 10 possible coronary artery disease: Patient described no previous history of OR that she had Q waves on the inferior area with possible area further testing including stress test or heart cath can be beneficial. 11 hyperglycemia: Has been on diet control A1c was mildly elevated patient to continue current management. 12 severe spinal stenosis mostly lumbar on chronic in origin on conservative management and physical therapy. 13 DVT prophylaxis: Continue patient on heparin subcutaneous. 14 GI prophylaxis: Continue patient on pantoprazole. 15. Covid 19 infection not present. Repeat testing ordered. CODE STATUS: Full code. Discharge plan: [facility] for subacute rehab on Friday. Impression and plan of care have been directed as dictated by the signing physician. Mary Mathews nurse practitioner acting as scribe for signing physician. Objective - Vital Signs Vital signs: Vital Signs Temp 98.1 F 08/24/19 20:00 Pulse 75 08/25/19 04:00 Resp 18 08/25/19 04:00 BP 140/67 08/25/19 04:00 Pulse Ox 96 08/25/19 04:00 Intake & Output 08/24/19 08/25/19 08/25/19 18:59 06:59 18:59 Intake Total 1100 200 Output Total 230 210 Balance 870 -210 200 Weight 54.2 kg Intake: Intake, IV Titration 900 Amount Sodium Chloride 0.9% 1, 900 000 ml @ 75 mls/hr IV . [id number] JULIÁN Rx#:[id number] Oral 200 200 Output: Chest Tube Drainage 30 5 Lower Anterior Chest 30 5 Drainage 5 Right Lower Chest 5 Urine 200 200 Other: Voiding Method Toilet Toilet # Voids 1 - Labs CBC & Chem 7: 08/25/19 05:49 08/25/19 05:49 Labs: Abnormal Lab Results - Last 24 Hours (Table) 08/25/19 08/25/19 Range/Units 05:49 05:49 WBC 11.0 H (3.8-10.6) k/uL RBC 3.64 L (3.80-5.40) m/uL Chloride 110 H (98-107) mmol/L Creatinine 1.25 H (0.52-1.04) mg/dL Microbiology - Last 24 Hours (Table) 08/22/19 11:40 Gram Stain - Preliminary Pericardial Fluid Body Fluid Culture - Preliminary
--- NOTE | 2019-08-25 10:25 | P.DS ---
Providers Date of admission: 08/20/19 18:16 Expected date of discharge: 08/25/19 Attending physician: Bennett Betancourt Consults: 08/20/19 18:16 Consult Physician Urgent Consulting Provider: [facility] Consult Reason/Comments: Pericardial effusion Do you want consulting provider notified?: Yes Consult Physician Urgent Consulting Provider: [facility] Consult Reason/Comments: Pericardial effusion Do you want consulting provider notified?: Yes Primary care physician: [facility] Course: 78-year-old female who moved from [facility] this past year I started seen almost a year ago who is known to have history of hypertension hyperlipidemia hypothyroidism with lipoma and a growth in the right upper extremity. Patient was seen in the office 3 weeks ago for worsening shortness of breath have mild abnormal EKG and louder murmur ended up going for an echocardiogram which showed large pericardial effusion. Patient had no temporal not so far was called by cardiology who is doing then to patient for the echo and advised to have patient hospitalized for possible cardiac window. Patient is symptomatic currently having significant shortness of breath PND orthopnea mild hypertension severe tiredness fatigue abnormal balancing gait with generalized weakness become a lot worse lately. 08/21/2019: Patient is resting comfortably in bed without any complaints or concerns. Possible pericardial window ordered for tomorrow. Echo ordered for today. Due to the patient's hypercalcemia CT of the chest abdomen and pelvis ordered today. Patient has no new complaints or concerns. Patient has been afebrile, blood pressure 154/70, heart rate 81, respirations 16, pulse ox 97% on room air. Potassium 4.2, BUN 19, creatinine 1.19, calcium 9.9 this morning, TSH 5.850 08/22/2019: Patient is resting comfortably in bed without any complaints or concerns. Patient is scheduled for pericardial 100 this afternoon. Repeat echo shows moderate concentric left ventricular atrophy, EF between 55 and 60%, right ventricle is moderately enlarged, normal LA size right atrial size is normal mild tricuspid regurgitation. A large generalized pericardial effusion present no tamponade. CT chest abdomen pelvis with and without contrast impression: Nonspecific cystic lesion left ovary, pericardial effusion, 6 hiatal hernia moderate size 08/22: Yesterday, patient underwent pericardial window with Dr. Mei. Patient's breathing status is currently stable. Pathology report is pending. Pericardial drainage tube remains in place. This is to be removed on Friday. We will add in PT and OT with anticipated need for subacute rehab. She is reaching 1500 mils on incentive spirometry. Patient is afebrile, heart rate 71, blood pressure 123/56, pulse ox 96% on room air repeat blood work reveals WBC 15.4, hemoglobin 12.8. BUN 17 creatinine 1.5, sodium 135. Limited echocardiogram repeated today. 08/23: Patient denies any new complaints today. Expect drainage tube to be removed today. Monitor patient overnight and plan for discharge to [facility] for subacute rehab. Patient's been afebrile, heart rate 84, blood pressure 137/62, pulse ox 93% on room air. WBC 12.4, creatinine 1.4. Pathology report remains pending. 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 Pericardial fluid cytology is pending. Patient did not have pericardial chest tube removed yesterday. This is scheduled to be removed today and patient has been cleared by cardiothoracic for discharge. They have recommended Medrol Dosepak. Patient is required to have a repeat negative COVID-19 tests prior to discharge. This is been ordered this morning. Patient denies any new complaints. Patient has been afebrile, heart rate 75, blood pressure 140/67, pulse ox 96% on room air. Repeat blood work reveals WBC 11, hemoglobin 12.1, platelet count 216. Sodium 139, potassium 4.3, chloride 110, CO2 26, BUN 13 and creatinine 1.25. Patient will be discharged to [facility] today is repeat Covid testing is negative. Assessment and plan 1 large pericardial effusion: Status post pericardial window 2 significant shortness of breath and dyspnea: Most likely from pericardial effusion 3 hypertension 4 hypothyroidism 5 severe GERD 6 acute kidney injury 7 hypercalcemia 8 large hiatal hernia 9 mild arrhythmia: Patient is having PVCs 10 possible coronary artery disease, Q waves on the inferior, possible stress test or heart cath can be beneficial at a later time 11 hyperglycemia 12 severe spinal stenosis mostly lumbar on chronic 13 Covid 19 infection not present. Repeat testing negative. Discharge plan: [facility] for subacute rehab on Friday. Impression and plan of care have been directed as dictated by the signing physician. Mary Mathews nurse practitioner acting as scribe for signing physician. Patient Condition at Discharge: Good Plan - Discharge Summary New Discharge Prescriptions: New methylPREDNISolone Dose Pack [Medrol Dose Pack] 24 mg PO DAILY tab Pantoprazole [Protonix] 40 mg PO AC-BRKFST tablet.dr Bruno Multivitamins, Thera [Multivitamin (formulary)] 1 tab PO W/LUNCH Levothyroxine Sodium [Synthroid] 62.5 mg PO DAILY@0600 amLODIPine [Norvasc] 5 mg PO DAILY@0700 Vitamin D3 (Unknown Strength) 1 tab PO W/LUNCH Discharge Medication List Levothyroxine Sodium [Synthroid] 62.5 mg PO DAILY@0600 08/20/19 [History] Multivitamins, Thera [Multivitamin (formulary)] 1 tab PO W/LUNCH 08/20/19 [History] Vitamin D3 (Unknown Strength) 1 tab PO W/LUNCH 08/20/19 [History] amLODIPine [Norvasc] 5 mg PO DAILY@0700 08/20/19 [History] Pantoprazole [Protonix] 40 mg PO AC-BRKFST tablet. 08/25/19 [Rx] methylPREDNISolone Dose Pack [Medrol Dose Pack] 24 mg PO DAILY tab 08/25/19 [Rx] Follow up Appointment(s)/Referral(s): Bennett Betancourt MD [Primary Care Provider] - 1-2 days Activity/Diet/Wound Care/Special Instructions: DISCHARGE INSTRUCTIONS: 1. No lifting, pushing, or pulling more than 10 pounds for 2 weeks. The physician will advise of any restriction changes. 2. Continue pain control per as needed orders. 3. Continue with incentive spirometry and splinting until otherwise directed by the physician. 4. Leave chest tube dressing for 48 hours. After that, remove all dressings and shower daily. 5. Routine incision care. No powders, lotions, ointments on incisions. 6. Please call surgeon/COMPENSATION ADJUSTER for temp greater than 101 F or purulent drainage from incisions. For any questions or concerns regarding surgical incision please call CV ALICE Treviño @ Discharge Disposition: TRANSFER TO SNF/ECF
[2019-08-25 12:24] VITALS: BP 144/69; PULSE 75; RESP 16; TEMP 98.4
[2019-08-25] MEDS: MULTIVITAMINS, THERA 1 EACH TAB PO SCH (12:44)
[2019-08-25] MEDS: CHOLECALCIFEROL 1,000 UNIT TAB PO SCH (12:44)
--- NOTE | 2019-08-25 14:08 | PN ---
PROGRESS NOTE Mrs Hogan came in with a pericardial effusion that was large. Had a pericardial window procedure performed, pericardial tube is not draining much. Echo reveals a very trivial amount of effusion. LV function is well preserved. She is doing better. Vitals are stable. No JVD, S1-S2 heard normally. Pericardial rub is evident. Lungs are clear. Abdomen and lower extremity exam unchanged. Will consider short dose of steroids. She can be discharged whenever it is okay with Dr. Scar Mei, pericardial tube will be pulled today. MMODL / IJN: [id number] /
--- NOTE | 2019-08-26 09:10 | CDI ---
Documentation Clarification Form Date: 08/26/19 From: Ene Simpson Phone: If you have a question about this query, please contact Anh Rojas, Mend Worker at [phone] between 8am and 5pm. Admit Date: 08/20/19 Discharge Date:08/25/19 Patient Name: Alexandrea Hogan Visit Number: [id number] ATTENTION: The Clinical Documentation Specialists (CDI) and [facility] Coding Staff appreciate your assistance in clarifying documentation. Please respond to the clarification below the line at the bottom and electronically sign. The CDI & [facility] Coding staff will review the response and follow-up if needed. Please note: Queries are made part of the Legal Health Record. If you have any questions, please contact the author of this message via ITS. Dear Dr. Betancourt Heart failure is documented in the H&P and 08/20 - 08/24 progress notes. History/Risk Factors: Pericardial effusion, hypertension, possible CAD Clinical Indicators: Significant shortness of breath and dyspnea VS/Pulse OX: T. 97.8, P. 97, R. 18, BP 201/84 BNP: Not tested Echocardiogram Results: 08/20 - Overall left ventricular systolic function is normal with an EF between 55 - 60% Chest X Ray: Global cardiomegaly correlate for cardiomyopathy versus pericardial effusion Treatment: Pericardial window In your professional opinion, can you please clarify the acuity and type of heart failure if known? Systolic Heart Failure: Acute Chronic Acute on Chronic Diastolic Heart Failure: Acute Chronic xx Acute on Chronic Systolic & Diastolic Heart Failure: Acute Chronic Acute on Chronic Heart Failure Heart Failure secondary to Pericardial Effusion Unable to Determine Other, please specify MTDD
== END 2019-08-25 13:51 | DRG 270 ==
LOC: EC 15:49 → 3SCARD 18:16
PROVIDERS: ADMIT Internal Medicine Geriatric Medicine; ATTEND Internal Medicine Geriatric Medicine
PROC: 0W9D00Z Drainage of Pericardial Cavity with Drainage Device, Open Approach (ICD-10-PCS; principal; 2019-08-22 11:00)
DX: I31.3 Pericardial effusion (noninflammatory) (principal); I50.33 Acute on chronic diastolic (congestive) heart failure; N17.9 Acute kidney failure, unspecified; I31.9 Disease of pericardium, unspecified; I11.0 Hypertensive heart disease with heart failure; E03.9 Hypothyroidism, unspecified; E78.5 Hyperlipidemia, unspecified; E83.52 Hypercalcemia; H81.02 Meniere's disease, left ear; I49.3 Ventricular premature depolarization; K21.9 Gastro-esophageal reflux disease without esophagitis; K44.9 Diaphragmatic hernia without obstruction or gangrene; M48.061 Spinal stenosis, lumbar region without neurogenic claudication; N83.202 Unspecified ovarian cyst, left side; R29.6 Repeated falls; R63.4 Abnormal weight loss; R73.9 Hyperglycemia, unspecified; Z20.828 Contact with and (suspected) exposure to other viral communicable diseases; I25.10 Atherosclerotic heart disease of native coronary artery without angina pectoris; Z79.899 Other long term (current) drug therapy; Z79.890 Hormone replacement therapy; Z87.891 Personal history of nicotine dependence; Z82.49 Family history of ischemic heart disease and other diseases of the circulatory system; Z80.9 Family history of malignant neoplasm, unspecified
CPT/HCPCS: 36415; 71046; 71270; 74178; 80048; 80053; 82945; 83615; 83735; 83970; 84157; 84439; 84443; 84484; 85025; 85027; 85610; 85730; 86850; 86900; 86901; 87070; 87102; 87116; 87205; 87206; 87635; 88108; 88305; 88341; 88342; 89050; 93005; 93306; 93308; 99285